=== PATIENT | female | born 1985 | race African-American/Black ===

== ENCOUNTER 2016-05-13 16:10 | Emergency (ER) | payer MEDICAID ==
[2016-05-13 16:42] VITALS: BP 148/113
--- NOTE | 2016-05-13 16:42 | ER Document Report ---
ED Medical Screen (RME) - General Stated Complaint: BACK PAIN Time seen by provider: 16:38 Mode of Arrival: Ambulatory Information source: Patient Notes: 30 yo female c/o intermittent chronic lumbar back pain ( x 9 year) all the way across since last night while watching tv. No radiculopathy. Usually due to LUPUS. Usually gets a shot for the pain. No fever. Decreased appeitite with nausea No UTI symptoms. TRAVEL OUTSIDE OF THE U[place] IN LAST 30 DAYS: No - Related Data Allergies/Adverse Reactions: aspirin [Aspirin] Allergy (Verified 04/17/16 18:44) Renal failure ibuprofen Allergy (Verified 04/17/16 18:44) Past Medical History - Past Medical History Cardiac Medical History: Reports: Hx Hypertension Pulmonary Medical History: Reports: Hx Asthma Neurological Medical History: Reports: Hx Seizures Renal/ Medical History: Reports: Hx Ovarian Cysts Past Surgical History: Reports: Hx Gynecologic Surgery - Colposcopy - Immunizations Immunizations up to date: Yes Hx Diphtheria, Pertussis, Tetanus Vaccination: Yes
[2016-05-13] MEDS ORDERED: ACETAMINOPHEN 325 MG TABLET PO ONE (16:43)
[2016-05-13 17:08] LABS: APPEARANCE,URINE CLEAR; BILIRUBIN,URINE NEGATIVE (NEGATIVE); GLUCOSE, URINE NEGATIVE (NEGATIVE); KETONES,URINE NEGATIVE (NEGATIVE); LEUKOCYTE ESTERASE,URINE NEGATIVE (NEGATIVE); NITRITE,URINE NEGATIVE (NEGATIVE); PROTEIN,URINE >=500 mg/dL (NEGATIVE); URINE SPECIFIC GRAVITY 1.016; UROBILINOGEN,URINE NEGATIVE mg/dL (<2.0)
[2016-05-13] MEDS ORDERED: MORPHINE SULFATE 10 MG/ML INJ IM ONE (18:01)
--- NOTE | 2016-05-13 18:04 | ER Document Report ---
ED General - General Chief Complaint: Low Back Pain Stated Complaint: BACK PAIN Mode of Arrival: Ambulatory Information source: Patient Notes: 30-year-old female history of lupus who is presented multiple times for chronic back pain Patient denies any neurological deficits any numbness or weakness TRAVEL OUTSIDE OF THE [place].S. IN LAST 30 DAYS: No - HPI Onset: Just prior to arrival Onset/Duration: Sudden Quality of pain: Achy Severity: Mild Pain Level: 1 Associated symptoms: Nausea Exacerbated by: Denies Relieved by: Denies Similar symptoms previously: Yes Recently seen / treated by doctor: Yes - Related Data Allergies/Adverse Reactions: aspirin [Aspirin] Allergy (Verified 05/13/16 16:42) Renal failure ibuprofen Allergy (Verified 05/13/16 16:42) Past Medical History - General Information source: Patient - Social History Smoking Status: Unknown if Ever Smoked Cigarette use (# per day): No Chew tobacco use (# tins/day): No Smoking Education Provided: No Frequency of alcohol use: None Drug Abuse: None Family History: Hypertension Patient has suicidal ideation: No Patient has homicidal ideation: No - Past Medical History Cardiac Medical History: Reports: Hx Hypertension Pulmonary Medical History: Reports: Hx Asthma Neurological Medical History: Reports: Hx Seizures Renal/ Medical History: Reports: Hx Ovarian Cysts Past Surgical History: Reports: Hx Gynecologic Surgery - Colposcopy - Immunizations Immunizations up to date: Yes Hx Diphtheria, Pertussis, Tetanus Vaccination: Yes Review of Systems - Review of Systems Notes: REVIEW OF SYSTEMS: CONSTITUTIONAL : Denies fever, chills, or sweats. Denies recent illness. EENT: Denies eye, ear, throat, or mouth pain or symptoms. Denies nasal or sinus congestion or discharge. Denies throat, tongue, or mouth swelling or difficulty swallowing. CARDIOVASCULAR: Denies chest pain. Denies palpitations or racing or irregular heart beat. Denies ankle edema. RESPIRATORY: Denies cough, cold, or chest congestion. Denies shortness of breath, difficulty breathing, or wheezing. GASTROINTESTINAL: Denies abdominal pain or distention. Denies nausea, vomiting , or diarrhea. Denies blood in vomitus, stools, or per rectum. Denies black, tarry stools. Denies constipation. GENITOURINARY: Denies difficulty urinating, painful urination, burning, frequency, blood in urine, or discharge. FEMALE GENITOURINARY: Denies vaginal bleeding, heavy or abnormal periods, irregular periods. Denies vaginal discharge or odor. MUSCULOSKELETAL: Admits to chronic low back pain SKIN: Denies rash, lesions or sores. HEMATOLOGIC : Denies easy bruising or bleeding. LYMPHATIC: Denies swollen, enlarged glands. NEUROLOGICAL: Denies confusion or altered mental status. Denies passing out or loss of consciousness. Denies dizziness or lightheadedness. Denies headache. Denies weakness or paralysis or loss of use of either side. Denies problems with gait or speech. Denies sensory loss, numbness, or tingling. Denies seizures. PSYCHIATRIC: Denies anxiety or stress. Denies depression, suicidal ideation, or homicidal ideation. ALL OTHER SYSTEMS REVIEWED AND NEGATIVE. Dictation was performed using [employer] voice recognition software PHYSICAL EXAMINATION: GENERAL: Well-appearing, well-nourished and in no acute distress. HEAD: Atraumatic, normocephalic. EYES: Pupils equal round and reactive to light, extraocular movements intact, conjunctiva are normal. ENT: Nares patent, oropharynx clear without exudates. Moist mucous membranes. NECK: Normal range of motion, supple without lymphadenopathy LUNGS: Breath sounds clear to auscultation bilaterally and equal. No wheezes rales or rhonchi. HEART: Regular rate and rhythm without murmurs ABDOMEN: Soft, nontender, nondistended abdomen. No guarding, no rebound. No masses appreciated. Female : deferred Musculoskeletal: Normal range of motion, no pitting or edema. No cyanosis. NEUROLOGICAL: Cranial nerves grossly intact. Normal speech, normal gait. Normal sensory, motor exams PSYCH: Normal mood, normal affect. SKIN: Warm, Dry, normal turgor, no rashes or lesions noted. Physical Exam - Vital signs Vitals: Temp Pulse Resp BP Pulse Ox 98.0 F 85 18 148/113 H 98 05/13/16 16:41 05/13/16 16:41 05/13/16 16:41 05/13/16 16:41 05/13/16 16:41 Course - Re-evaluation Re-evalutation: 05/13/16 18:09 Patient is in no significant distress, she is resting comfortably with family member at bedside laughing when I walked in. Patient will be given pain control is otherwise stable After performing a Medical Screening Examination, I estimate there is LOW risk for EXPANDING OR RUPTURED ABDOMINAL AORTIC ANEURYSM, CAUDA EQUINA SYNDROME, EPIDURAL MASS LESION, or HERNIATED DISK CAUSING SEVERE SPINAL STENOSIS, thus I consider the discharge disposition reasonable. The patient and I have discussed the diagnosis and risks, and we agree with discharging home and close follow-up. We also discussed returning to the Emergency Department immediately if new or worsening symptoms occur with the understanding that symptoms and presentations can change. We have discussed the symptoms which are most concerning (e.g., saddle anesthesia, urinary or bowel incontinence or retention , changing or worsening pain) that necessitate immediate return. - Vital Signs Vital signs: Temp Pulse Resp BP Pulse Ox 98.0 F 85 18 148/113 H 98 05/13/16 16:41 05/13/16 16:41 05/13/16 16:41 05/13/16 16:41 05/13/16 16:41 - Laboratory Laboratory results interpreted by me: 05/13/16 16:50 Urine Protein >=500 H Urine Blood MODERATE H Discharge - Discharge Clinical Impression: Chronic bilateral low back pain without sciatica Lupus Qualifiers: Systemic lupus erythematosus type: unspecified Systemic lupus erythematosus organ involvement: unspecified Qualified Code(s): M32.9 - Systemic lupus erythematosus, unspecified Condition: Stable Disposition: HOME, SELF-CARE Instructions: Low Back Pain ([facility]) Prescriptions: Oxycodone HCl [Oxycontin Ir 5 Mg Tablet] 1 - 2 mg PO Q4H PRN #15 tablet PRN Reason: For Pain Referrals: PAULINA MUSA MD [Primary Care Provider] - Follow up tomorrow
== END 2016-05-13 18:33 | disposition home or self-care (01) ==
LOC: ER 16:10
DX: G89.29 Other chronic pain (principal); M54.5 Low back pain; M32.9 Systemic lupus erythematosus, unspecified; R11.0 Nausea; I10 Essential (primary) hypertension; J45.909 Unspecified asthma, uncomplicated; Z88.6 Allergy status to analgesic agent
CPT/HCPCS: 99283; 96372; 87086; 81001; J3490; J2270

== ENCOUNTER 2016-09-20 08:29 | Emergency (ER) | payer MEDICAID ==
[2016-09-20] MEDS ORDERED: KETOROLAC TROMETHAMINE 60 MG/2 ML SDV IM ONE (09:48)
[2016-09-20] MEDS ORDERED: DIPHENHYDRAMINE HCL 50 MG/ML VIAL IM ONE (09:48)
[2016-09-20] MEDS ORDERED: METOCLOPRAMIDE HCL INJ/PF 10 MG/2 ML SDV IM ONE (09:49)
--- NOTE | 2016-09-20 10:15 | ER Document Report ---
ED Headache - General Mode of Arrival: Ambulatory Information source: Patient TRAVEL OUTSIDE OF THE U.S. 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 Patient states that she has taken Tylenol to no relief. Patient additionally complains of teary left eye, but denies any blurry or double vision, numbness or tingling, or any stroke like symptoms. Patient has tried to make an appointment with her primary care provider, Jessika MCKEON, but she isn't available for the next 4 days. Patient has no known family history of brain aneurysms. Patient is taking 35 mg Prednisone for the past 8-9 years, Lisinopril, and percocet as needed. Patient has not taken her medication today. (YOJANA JOHNSON) - Related Data Allergies/Adverse Reactions: aspirin [Aspirin] Allergy (Verified 09/21/16 08:35) Renal failure ibuprofen Allergy (Verified 09/21/16 08:35) Past Medical History - General Information source: Patient - Social History Smoking Status: Never Smoker Frequency of alcohol use: None Drug Abuse: None Family History: Hypertension Patient has suicidal ideation: No Patient has homicidal ideation: No - Medical History Medical History: Other - History of Lupus - Past Medical History Cardiac Medical History: Reports: Hx Hypertension Pulmonary Medical History: Reports: Hx Asthma Neurological Medical History: Reports: Hx Seizures Renal/ Medical History: Reports: Hx Ovarian Cysts. Denies: Hx Peritoneal Dialysis Past Surgical History: Reports: Hx Gynecologic Surgery - Colposcopy - Immunizations Immunizations up to date: Yes Hx Diphtheria, Pertussis, Tetanus Vaccination: Yes Review of Systems - Review of Systems Constitutional: No symptoms reported EENT: See HPI, Eye discharge - tears. denies: Blurred vision, Double vision Cardiovascular: No symptoms reported Respiratory: No symptoms reported Gastrointestinal: No symptoms reported Genitourinary: No symptoms reported Female Genitourinary: No symptoms reported Musculoskeletal: No symptoms reported Skin: No symptoms reported Hematologic/Lymphatic: No symptoms reported Neurological/Psychological: See HPI, Headaches - temporal. denies: Speech impairment, Numbness, Tingling -: Yes All other systems reviewed and negative Physical Exam - General General appearance: Alert In distress: None - HEENT Head: Normocephalic, Atraumatic Eyes: Normal Extraocular movements intact: Yes Pupils: PERRL Neck: Normal - Respiratory Respiratory status: No respiratory distress Breath sounds: Normal - Cardiovascular Rhythm: Regular Heart sounds: Normal auscultation - Abdominal Inspection: Normal - Back Back: Normal - Extremities General upper extremity: Normal inspection, Normal ROM General lower extremity: Normal inspection, Normal ROM - Neurological Neuro grossly intact: Yes Cognition: Normal Orientation: AAOx4 Blaine Coma Scale Eye Opening: Spontaneous Blaine Coma Scale Verbal: Oriented Sameer Coma Scale Motor: Obeys Commands Sameer Coma Scale Total: 15 Speech: Normal Motor strength normal: LUE, RUE, LLE, RLE - Psychological Associated symptoms: Normal affect, Normal mood - Skin Skin Temperature: Warm Skin Moisture: Dry Skin Color: Normal Course - Re-evaluation Re-evalutation: 09/20/16 10:53 Patient presents to the emergency department with a 2 and half day history of headache. He said that it has been persistent no [id number] treatment other than Tylenol does not have a history of chronic headaches. There is no associated blurred vision double vision strokelike symptoms numbness tingling weakness loss of bowel or bladder function vertigo or dizziness. She does have a history of lupus and is on CellCept for that. She is also on chronic steroids for years that she states they were unable to remove her from. She normally takes Percocet for chronic pain but she says that she has been adamantly having given her any lately. No family history of brain aneurysms and she drove herself here. On examination her blood pressure is elevated she states she did not take her medicine today. She is awake alert with a GCS of 15 no blurred vision no double vision HEENT examination is normal no neck pain stiffness or nuchal rigidity negative neurological deficits with a GCS of 15. Negative CT scan of the head. Given Toradol Reglan Benadryl with significant improvement. At this point patient is reassessed her pain is improved she is sleepy ray go home and take a nap already called her primary care physician is going to see her on Saturday. She is to return to the emergency department sooner for increasing worsening or new symptoms discussed the elevated blood pressure gave her instructions on that and close follow-up in regards to that as well. (FAIZA CISNEROS) - Vital Signs Vital signs: Temp Pulse Resp BP Pulse Ox 98.1 F 70 16 137/86 H 100 09/20/16 11:01 09/20/16 11:01 09/20/16 11:01 09/20/16 11:01 09/20/16 11:01 Discharge - Discharge Clinical Impression: Cephalgia Qualifiers: Headache type: unspecified Headache chronicity pattern: unspecified pattern Intractability: not intractable Qualified Code(s): R51 - Headache Condition: Stable Disposition: HOME, SELF-CARE Instructions: Headache ([facility]) Additional Instructions: Headache The physician does not feel that the headache you are experiencing has a serious underlying cause. Most headaches are due to emotional stress, with resultant muscle tension (tension headache). Occasionally, headaches are secondary to changes in the blood vessels of the scalp (vascular headache and migraine headache). Sometimes, a headache is the first symptom of another developing illness, such as a viral infection. You have no evidence of stroke, bleeding, meningitis, or other serious cause of your headache. The treatment of headaches varies with the severity and cause of the pain. Not all headaches need pain shots. In fact, there is evidence that using narcotics for headaches may make them worse in the long run. The physician will determine the therapy that's in your best interest. If you develop a fever, if the headache is different from any you've previously experienced, or if the headache progressively worsens, then call your physician at once or go to the emergency room. Referrals: JESSIKA DONOVAN PA-C [Primary Care Provider] - (in 2-3 days return for increased worsening or new symptoms) Scribe Attestation: 09/20/16 10:53 I personally performed the services described in the documentation reviewed the documentation recorded by my scribe in my presence and it accurately and completely records my words and actions (FAIZA CISNEROS) Scribe Documentation - Scribe Written by Kerry:: Kerry Coulter, 09/20/2016 1017 acting as scribe for :: Harsh
[2016-09-20 11:22] VITALS: BP 137/86
== END 2016-09-20 11:03 | disposition home or self-care (01) ==
LOC: ER 08:29
DX: R51 Headache (principal); I10 Essential (primary) hypertension; H57.8 Other specified disorders of eye and adnexa; J45.909 Unspecified asthma, uncomplicated; Z86.73 Personal history of transient ischemic attack (TIA), and cerebral infarction without residual deficits; Z79.52 Long term (current) use of systemic steroids; Z79.899 Other long term (current) drug therapy; Z88.6 Allergy status to analgesic agent
CPT/HCPCS: 99284; 96372; 70450; J1200; J1885; J2765

== ENCOUNTER 2016-09-21 08:32 | Emergency (ER) | payer MEDICAID ==
[2016-09-21] MEDS ORDERED: PENICILLIN V POTASSIUM 500 MG TABLET PO ONE (10:04)
[2016-09-21] MEDS ORDERED: BUPIVACAINE HCL 0.5 % INJ/PF 30 ML SDV INJ ONE (10:04)
--- NOTE | 2016-09-21 10:10 | ER Document Report ---
HPI - HPI Patient complains to provider of: toothache Pain Level: 5 Context: A 30-year-old female thank you who presents emergency department complaining of left lower jaw pain since last evening. Patient states that she is evaluated in the emergency department last evening for headache Patient states that she then went home and started having pain in her left lower jaw. Comes in today for evaluation for tooth pain. She denies any fevers, chills, difficulty swallowing, difficulty breathing, shortness breath, trismus, muffled speech, discharge or odor. Past medical history significant for lupus - CARDIOVASCULAR Cardiovascular: DENIES: Chest pain - REPRODUCTIVE Reproductive: DENIES: : - DERM Skin Color: Normal Past Medical History - Social History Smoking Status: Never Smoker Chew tobacco use (# tins/day): No Frequency of alcohol use: None Drug Abuse: None Family History: Hypertension Patient has suicidal ideation: No Patient has homicidal ideation: No - Past Medical History Cardiac Medical History: Reports: Hx Hypertension Pulmonary Medical History: Reports: Hx Asthma Neurological Medical History: Reports: Hx Seizures Renal/ Medical History: Reports: Hx Ovarian Cysts. Denies: Hx Peritoneal Dialysis Past Surgical History: Reports: Hx Gynecologic Surgery - Colposcopy - Immunizations Immunizations up to date: Yes Hx Diphtheria, Pertussis, Tetanus Vaccination: Yes Vertical Provider Document - CONSTITUTIONAL Agree With Documented VS: Yes Exam Limitations: No Limitations General Appearance: WD/WN, No Apparent Distress - INFECTION CONTROL TRAVEL OUTSIDE OF THE [place].S[place] IN LAST 30 DAYS: No - HEENT HEENT: Atraumatic, Normocephalic, PERRLA. negative: Conjuctival Injection, Pharyngeal Exudate, Pharyngeal Tenderness, Pharyngeal Erythema, Tympanic Membrane Red, Tympanic Membrane Bulging Mouth Diagram: 1 - Tenderness to palpation without any evidence of abscess. Evidence of gingival inflammation as well is old fracture Notes: Uvula midline. Airway patent. No evidence of tonsillar enlargement, peritonsillar abscess, retropharyngeal abscess. - NECK Neck: Normal Inspection, Other - No evidence of Bill's angina. negative: Lymphadenopathy-Left, Lymphadenopathy-Right - RESPIRATORY Respiratory: Breath Sounds Normal, No Respiratory Distress, Chest Non-Tender O2 Sat by Pulse Oximetry: 99 - CARDIOVASCULAR Cardiovascular: Regular Rate, Regular Rhythm, No Murmur Course - Re-evaluation Re-evalutation: 09/21/16 20:44 Patient is a 30-year-old female who is hemodynamic stable, no acute distress and afebrile. Patient received a 5 cc Sensorcaine dental block which alleviated her symptoms. Patient initiated on antibiotics and instructed to follow-up with the dentist at the completion of this course. - Vital Signs Vital signs: Temp Pulse Resp BP Pulse Ox 99.1 F 72 18 149/93 H 99 09/21/16 08:36 09/21/16 08:36 09/21/16 08:36 09/21/16 08:36 09/21/16 08:36 Discharge - Discharge Clinical Impression: Tooth ache Condition: Good Disposition: HOME, SELF-CARE Instructions: [facility], Oral Narcotic Medication ([facility]), Penicillin V K ([facility]), Toothache ([facility]) Additional Instructions: [facility] [address] [place], [place] Saturday mornings, by appointment [facility] [address] [place] [address] [facility] [place] [address] [facility] [address] [facility] (4th) [facility] [address] [email or web address] [address] [place] [address] Saturday- 8:00am to 5:00 pm Will see patients from other [facility]. Charges based on income and family size and accepts Medicare, Medicaid, and Insurances Will pull molars [facility] [address] Hours of Operation 8:00 am - 4:30 pm weekdays The following dental offices accept Medicaid: [facility] [address]. [address] Dr[address] Weeks [address]orman Dr. Dela Cruz Tu Acharya, Kay, and [place] oral surgery Dr. Mary ([place]) Dr. Courtney ([place]) [facility] Drs. Rouse ([place]) Dr. Dai ([place]) [facility] Dr. Chopra ([place]) Drs. Champagne and ([place]) Medicaid Care Line Prescriptions: Oxycodone HCl/Acetaminophen [Percocet 5-325 mg Tablet] 1 - 2 tab PO Q4H PRN #15 tablet PRN Reason: Penicillin V Potassium [Penicillin Vk 500 mg Tablet] 500 mg PO BID #20 tablet Forms: Elevated Blood Pressure Referrals: JESSIKA DONOVAN PA-C [Primary Care Provider] - Follow up as needed
[2016-09-21 10:30] VITALS: BP 159/103
== END 2016-09-21 10:30 | disposition home or self-care (01) ==
LOC: ER 08:32
DX: K08.9 Disorder of teeth and supporting structures, unspecified (principal); R68.84 Jaw pain; R51 Headache; I10 Essential (primary) hypertension; J45.909 Unspecified asthma, uncomplicated
CPT/HCPCS: 99282; J3490

== ENCOUNTER 2016-10-07 15:51 | Emergency (ER) | payer MEDICAID ==
[2016-10-07] MEDS ORDERED: KETOROLAC TROMETHAMINE 60 MG/2 ML SDV IM ONE (17:14)
[2016-10-07 18:37] LABS: HEMATOCRIT 25.1 % (36.0-47.0); HGB HCT DIFFERENCE -3.5; MEAN CORPUSCULAR HEMOGLOBIN 17.8 pg (27.0-33.4); MEAN CORPUSCULAR HGB CONC 28.8 g/dL (32.0-36.0); RED BLOOD COUNT 4.05 10^6/uL (3.72-5.28); RED CELL DISTRIBUTION WIDTH 18.9 % (11.5-14.0); WHITE BLOOD COUNT 9.9 10^3/uL (4.0-10.5)
[2016-10-07 18:43] LABS: APPEARANCE,URINE CLEAR; BILIRUBIN,URINE NEGATIVE (NEGATIVE); GLUCOSE, URINE NEGATIVE (NEGATIVE); KETONES,URINE NEGATIVE (NEGATIVE); LEUKOCYTE ESTERASE,URINE NEGATIVE (NEGATIVE); NITRITE,URINE NEGATIVE (NEGATIVE); PROTEIN,URINE >=500 mg/dL (NEGATIVE); URINE SPECIFIC GRAVITY 1.013; UROBILINOGEN,URINE NEGATIVE mg/dL (<2.0)
--- NOTE | 2016-10-07 18:47 | ER Document Report ---
ED Medical Screen (RME) - General Chief Complaint: Back Pain Stated Complaint: BACK PAIN Time Seen by Provider: 10/07/16 17:14 Mode of Arrival: Ambulatory Information source: Patient Notes: Patient is a 30-year-old -[place] female with a history of iron deficiency anemia who presents to the ER today for iron infusion as she was told recently at another hospital but her iron levels were low and she needed an infusion, but she did not get one there. She also presents with low back pain that she thinks is the start of a lupus flare for her. She presents "the same shot I got last time which helped a lot." TRAVEL OUTSIDE OF THE U.S. IN LAST 30 DAYS: No - Related Data Allergies/Adverse Reactions: aspirin [Aspirin] Allergy (Verified 10/07/16 16:22) Renal failure ibuprofen Allergy (Verified 10/07/16 16:22) Past Medical History - General Information source: Patient - Social History Chew tobacco use (# tins/day): No Frequency of alcohol use: None Drug Abuse: None - Past Medical History Cardiac Medical History: Reports: Hx Hypertension Pulmonary Medical History: Reports: Hx Asthma Neurological Medical History: Reports: Hx Seizures Renal/ Medical History: Reports: Hx Ovarian Cysts. Denies: Hx Peritoneal Dialysis Past Surgical History: Reports: Hx Gynecologic Surgery - Colposcopy - Immunizations Immunizations up to date: Yes Hx Diphtheria, Pertussis, Tetanus Vaccination: Yes Review of Systems - Review of Systems Musculoskeletal: See HPI Hematologic/Lymphatic: See HPI Physical Exam - Vital signs Vitals: Temp Pulse Resp BP Pulse Ox 98.2 F 87 20 143/106 H 100 10/07/16 16:23 10/07/16 16:23 10/07/16 16:23 10/07/16 16:23 10/07/16 16:23 - Notes Notes: PHYSICAL EXAMINATION: GENERAL: Well-appearing and in no acute distress. LUNGS: CTAB and equal. No wheezes rales or rhonchi. HEART: Regular rate and rhythm without murmurs Course - Vital Signs Vital signs: Temp Pulse Resp BP Pulse Ox 98.2 F 87 20 143/106 H 100 10/07/16 16:23 10/07/16 16:23 10/07/16 16:23 10/07/16 16:23 10/07/16 16:23 - Laboratory Result Diagrams: 10/07/16 18:20 Laboratory results interpreted by me: 10/07/16 18:20 Urine Protein >=500 H Urine Blood SMALL H
[2016-10-07 18:58] LABS: HEMOGLOBIN 7.2 g/dL (12.0-15.5)
[2016-10-07 18:59] LABS: MEAN CORPUSCULAR VOLUME 62 fl (80-97)
[2016-10-07] MEDS ORDERED: TRAMADOL HCL 50 MG TABLET PO ONE (19:25)
--- NOTE | 2016-10-07 19:30 | ER Document Report ---
HPI - HPI Patient complains to provider of: pelvic cramps Pain Level: 4 Context: Is a 30-year-old female presents emergency department complaining of pelvic cramps from her. That started today that radiating into her back. She often gets a Toradol injection for this which helped relieve her cramps. Patient admits that she is anemic but would like to have her blood work checked she is concerned she may need a transfusion. Patient states she follows with kajal MCKEON, who prescribed her iron infusion for her anemia. Denies any lightheadedness, dizziness, chest pain, weakness. - CARDIOVASCULAR Cardiovascular: DENIES: Chest pain - REPRODUCTIVE Reproductive: DENIES: : - DERM Skin Color: Normal Past Medical History - General Information source: Patient - Social History Smoking Status: Never Smoker Chew tobacco use (# tins/day): No Frequency of alcohol use: None Drug Abuse: None Family History: Hypertension Patient has suicidal ideation: No Patient has homicidal ideation: No - Past Medical History Cardiac Medical History: Reports: Hx Hypertension Pulmonary Medical History: Reports: Hx Asthma Neurological Medical History: Reports: Hx Seizures Renal/ Medical History: Reports: Hx Ovarian Cysts. Denies: Hx Peritoneal Dialysis Past Surgical History: Reports: Hx Gynecologic Surgery - Colposcopy - Immunizations Immunizations up to date: Yes Hx Diphtheria, Pertussis, Tetanus Vaccination: Yes Vertical Provider Document - CONSTITUTIONAL Agree With Documented VS: Yes Exam Limitations: No Limitations General Appearance: WD/WN, No Apparent Distress Notes: PHYSICAL EXAM GENERAL: Alert, interacts well. HEAD: Normocephalic, atraumatic. EYES: Pupils equal, round, and reactive to light. Extraocular movements intact. ENT: Oral mucosa moist, tongue midline. NECK: Full range of motion. Supple. Trachea midline. LUNGS: Clear to auscultation bilaterally, no wheezes, rales, or rhonchi. No respiratory distress. HEART: Regular rate and rhythm. No murmurs, gallops, or rubs. ABDOMEN: Soft, nondistended, nontender. No guarding, rebound, or rigidity.. Bowel sounds present in all 4 quadrants. EXTREMITIES: Moves all 4 extremities spontaneously. No edema, radial and dorsalis pedis pulses 2/4 bilaterally. No cyanosis. BACK: mild paraspinal muscle tenderness bilaterally without spinous process tenderness, step offs, deformities RECTAL: patient refused : patient refused NEUROLOGICAL: Alert and oriented x4. Normal speech. PSYCH: Normal affect, normal mood. SKIN: Warm, dry, normal turgor. No rashes or lesions noted. - INFECTION CONTROL TRAVEL OUTSIDE OF THE [place] IN LAST 30 DAYS: No - RESPIRATORY O2 Sat by Pulse Oximetry: 100 Course - Re-evaluation Re-evalutation: 10/07/16 20:04 Patient is a 30-year-old female who is hemodynamic stable, no acute. CBC 7.2 with hematocrit of 25 which is down from her previous CBC drawn in March with a hemoglobin of 10. Patient has been this low in the past on previous studies. Discussion with supervising physician Dr. Anabella Fagan, he recommends touching base with her primary grade teacher Dr. Gabriel to see if he would recommend blood transfusion or not. Discussed with patient, she refused any further workup for her anemia declined possibility that she would need blood transfusion. Patient requesting to go home. Will follow up with PCP tomorrow. Patient clinically and recent vital signs stable. Discussed with her strict return precautions. Patient expresses understanding and agrees with plan. - Vital Signs Vital signs: Temp Pulse Resp BP Pulse Ox 98.2 F 87 20 143/106 H 100 10/07/16 16:23 10/07/16 16:23 10/07/16 16:23 10/07/16 16:23 10/07/16 16:23 - Laboratory Result Diagrams: 10/07/16 18:20 Laboratory results interpreted by me: 10/07/16 10/07/16 18:20 18:20 Hgb 7.2 L Hct 25.1 L MCV 62 L MCH 17.8 L MCHC 28.8 L RDW 18.9 H Plt Count 621 H Urine Protein >=500 H Urine Blood SMALL H Discharge - Discharge Clinical Impression: Anemia, Menstrual cramps Condition: Good Disposition: HOME, SELF-CARE Instructions: Anemia, Iron Deficiency ([facility]) Additional Instructions: Please follow up with your Parts Cataloguer and primary care provider tomorrow Prescriptions: Tramadol HCl 50 mg PO Q8HP PRN #10 tablet PRN Reason: Forms: Elevated Blood Pressure Referrals: KAJAL DONOVAN PA-C [Primary Care Provider] - Follow up tomorrow RAVEN CHUN MD [ACTIVE STAFF] - Follow up in 3-5 days
[2016-10-07 19:59] VITALS: BP 146/100
[2016-10-08 18:26] LABS: PATH REVIEW PATHOLOGIST REVIEWED
== END 2016-10-07 19:55 | disposition home or self-care (01) ==
LOC: ER 15:51
DX: N94.6 Dysmenorrhea, unspecified (principal); D64.9 Anemia, unspecified; I10 Essential (primary) hypertension; J45.909 Unspecified asthma, uncomplicated
CPT/HCPCS: 99284; 96372; 36415; 85027; 81001; J1885

== ENCOUNTER 2016-11-05 13:45 | Emergency (ER) | payer MEDICAID ==
[2016-11-05] MEDS ORDERED: ONDANSETRON 4 MG TAB.RAPDIS PO ONE (14:43)
--- NOTE | 2016-11-05 15:04 | ER Document Report ---
ED Medical Screen (RME) - General Chief Complaint: Pain All Over Stated Complaint: VOMITING Time Seen by Provider: 11/05/16 14:42 Notes: Patient is a 31-year-old female, past medical history lupus, presents with bilateral back pain and lower abdominal pain and nausea. She usually has this around the time of her periods. Her period started yesterday. Unable to keep any of her medications down. PE: Actively vomiting. RRR. Soft abdomen. I have greeted and performed a rapid initial assessment of this patient. A comprehensive ED assessment and evaluation of the patient, analysis of test results and completion of the medical decision making process will be conducted by additional ED providers. TRAVEL OUTSIDE OF THE [place] IN LAST 30 DAYS: No - Related Data Allergies/Adverse Reactions: aspirin [Aspirin] Allergy (Verified 11/05/16 13:58) Renal failure ibuprofen Allergy (Verified 11/05/16 13:58) Past Medical History - Past Medical History Cardiac Medical History: Reports: Hx Hypertension Pulmonary Medical History: Reports: Hx Asthma Neurological Medical History: Reports: Hx Seizures Renal/ Medical History: Reports: Hx Ovarian Cysts. Denies: Hx Peritoneal Dialysis Past Surgical History: Reports: Hx Gynecologic Surgery - Colposcopy - Immunizations Immunizations up to date: Yes Hx Diphtheria, Pertussis, Tetanus Vaccination: Yes Physical Exam - Vital signs Vitals: Temp Pulse Resp BP Pulse Ox 98.1 F 67 18 175/114 H 99 11/05/16 13:58 11/05/16 13:58 11/05/16 13:58 11/05/16 13:58 11/05/16 13:58 Course - Vital Signs Vital signs: Temp Pulse Resp BP Pulse Ox 98.1 F 67 18 175/114 H 99 11/05/16 13:58 11/05/16 13:58 11/05/16 13:58 11/05/16 13:58 11/05/16 13:58
[2016-11-05] MEDS ORDERED: KETOROLAC TROMETHAMINE 60 MG/2 ML SDV IM ONE (15:15)
[2016-11-05] MEDS ORDERED: HYDROCODONE/ACETAMINOPHEN 5-325 MG TABLET PO ONE (15:15)
[2016-11-05 15:24] LABS: HEMATOCRIT 24.3 % (36.0-47.0); HGB HCT DIFFERENCE -3.6; MEAN CORPUSCULAR HGB CONC 28.3 g/dL (32.0-36.0); RED BLOOD COUNT 4.05 10^6/uL (3.72-5.28); RED CELL DISTRIBUTION WIDTH 21.2 % (11.5-14.0); WHITE BLOOD COUNT 13.4 10^3/uL (4.0-10.5)
[2016-11-05 15:45] LABS: BASOPHILS % (MANUAL) 0 % (0-2); EOSINOPHILS % (MANUAL) 0 % (0-6); LYMPHOCYTES % (MANUAL) 10 % (13-45); TOTAL CELLS COUNTED 100
[2016-11-05 15:47] LABS: ANISOCYTOSIS 2+; BURR CELLS SLIGHT; HELMET CELLS SLIGHT; HYPOCHROMASIA 3+; MICROCYTOSIS 3+; OVALOCYTES 1+; POIKILOCYTOSIS 3+; TARGET CELLS SLIGHT; TEAR DROP CELLS SLIGHT
[2016-11-05 15:48] LABS: ALANINE AMINOTRANSFERASE 21 U/L (9-52); ALBUMIN 3.6 g/dL (3.5-5.0); ALKALINE PHOSPHATASE 87 U/L (38-126); ANION GAP 10 (5-19); ASPARTATE AMINO TRANSFERASE 22 U/L (14-36); BILIRUBIN,DIRECT 0.3 mg/dL (0.0-0.4); BILIRUBIN,TOTAL 0.4 mg/dL (0.2-1.3); BLOOD UREA NITROGEN 12 mg/dL (7-20); CALCIUM 9.3 mg/dL (8.4-10.2); CARBON DIOXIDE 20 mmol/L (22-30); CHLORIDE 110 mmol/L (98-107); CREATININE RESULT 1.39 mg/dL (0.52-1.25); GLUCOSE 110 mg/dL (75-110); LIPASE 76.4 U/L (23-300); POTASSIUM 4.8 mmol/L (3.6-5.0); SODIUM 140.3 mmol/L (137-145); TOTAL PROTEIN 7.7 g/dL (6.3-8.2)
--- NOTE | 2016-11-05 16:00 | ER Document Report ---
ED General Pain - General Chief Complaint: Pain All Over Stated Complaint: VOMITING Time Seen by Provider: 11/05/16 14:42 Mode of Arrival: Ambulatory Information source: Patient TRAVEL OUTSIDE OF THE [place] IN LAST 30 DAYS: No - HPI Patient complains to provider of: Abdominal pain, low back pain Onset: Yesterday Onset/Duration: Gradual Quality of pain: Achy, Cramping Severity: Moderate Pain Level: 3 Context: Chronic problem Similar symptoms previously: Yes Notes: Patient is a 31-year-old female with a history of lupus who presents to the emergency room complaining of low back pain with pelvic cramping and heavy vaginal bleeding, states she started her menstrual cycle yesterday, she is also having nausea and vomiting today related to the pain, she states she gets symptoms like this every month when she gets her period, today is worse than usual, she reports that she attempted to follow-up with her primary care provider today, however due to 06 November hol their office is closed so she came to the emergency room - Related Data Allergies/Adverse Reactions: aspirin [Aspirin] Allergy (Verified 11/05/16 13:58) Renal failure ibuprofen Allergy (Verified 11/05/16 13:58) Past Medical History - General Information source: Patient - Social History Smoking Status: Never Smoker Family History: Hypertension Patient has suicidal ideation: No Patient has homicidal ideation: No - Past Medical History Cardiac Medical History: Reports: Hx Hypertension Pulmonary Medical History: Reports: Hx Asthma Neurological Medical History: Reports: Hx Seizures Renal/ Medical History: Reports: Hx Ovarian Cysts. Denies: Hx Peritoneal Dialysis Past Surgical History: Reports: Hx Gynecologic Surgery - Colposcopy - Immunizations Immunizations up to date: Yes Hx Diphtheria, Pertussis, Tetanus Vaccination: Yes Review of Systems - Review of Systems Constitutional: No symptoms reported EENT: No symptoms reported Cardiovascular: No symptoms reported Respiratory: No symptoms reported Gastrointestinal: See HPI Genitourinary: No symptoms reported Female Genitourinary: See HPI Musculoskeletal: See HPI Skin: No symptoms reported Hematologic/Lymphatic: No symptoms reported Neurological/Psychological: No symptoms reported -: Yes All other systems reviewed and negative Physical Exam - Vital signs Vitals: Temp Pulse Resp BP Pulse Ox 98.1 F 67 18 175/114 H 99 11/05/16 13:58 11/05/16 13:58 11/05/16 13:58 11/05/16 13:58 11/05/16 13:58 Interpretation: Hypertensive - General General appearance: Appears well, Alert - HEENT Head: Normocephalic, Atraumatic Eyes: Normal Pupils: PERRL - Respiratory Respiratory status: No respiratory distress Chest status: Nontender Breath sounds: Normal Chest palpation: Normal - Cardiovascular Rhythm: Regular Heart sounds: Normal auscultation Murmur: No - Abdominal Inspection: Normal Distension: No distension Bowel sounds: Normal Tenderness: Tender - suprapubic Organomegaly: No organomegaly - Back Back: Normal, Nontender - Extremities General upper extremity: Normal inspection, Nontender, Normal color, Normal ROM , Normal temperature General lower extremity: Normal inspection, Nontender, Normal color, Normal ROM , Normal temperature, Normal weight bearing. No: Mildred's sign - Neurological Neuro grossly intact: Yes Cognition: Normal Orientation: AAOx4 [place] Coma Scale Eye Opening: Spontaneous Sameer Coma Scale Verbal: Oriented [place] Coma Scale Motor: Obeys Commands [place] Coma Scale Total: 15 Speech: Normal Motor strength normal: LUE, RUE, LLE, RLE Sensory: Normal - Psychological Associated symptoms: Normal affect, Normal mood - Skin Skin Temperature: Warm Skin Moisture: Dry Skin Color: Normal Course - Re-evaluation Re-evalutation: 11/05/16 18:43 Resting comfortably, reports feeling much better after IV fluids and medication , laboratory findings were discussed with her at bedside including her hemoglobin is 6.9, she does have heavy vaginal bleeding on a regular basis, her most recent hemoglobins were in the 7.0-7.4 range, she had blood transfusions in the past but has not followed up to get one recently, she does also report that she is been advised to get a hysterectomy as well but the 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 will not do it until her hemoglobin is improved, patient's vital signs are stable, her anemia is more chronic in nature and does not require an emergent transfusion tonight, therefore she will be discharged with instructions for follow-up and advised to return if any additional concerns, patient acknowledges understanding and agreement with this plan - Vital Signs Vital signs: Temp Pulse Resp BP Pulse Ox 98.1 F 67 14 175/114 H 100 11/05/16 13:58 11/05/16 13:58 11/05/16 18:14 11/05/16 13:58 11/05/16 18:14 - Laboratory Result Diagrams: 11/05/16 15:05 11/05/16 15:05 Laboratory results interpreted by me: 11/05/16 11/05/16 11/05/16 15:05 15:05 15:05 WBC 13.4 H Hgb 6.9 L Hct 24.3 L MCV 60 L MCH 17.0 L MCHC 28.3 L RDW 21.2 H Plt Count 831 H Seg Neuts % (Manual) 87 H Lymphocytes % (Manual) 10 L Abs Neuts (Manual) 11.7 H Chloride 110 H Carbon Dioxide 20 L Creatinine 1.39 H Est GFR ( Amer) 54 L Est GFR (Non-Af Amer) 45 L Urine Protein >=500 H Urine Blood MODERATE H Discharge - Discharge Clinical Impression: Myalgia Anemia Qualifiers: Anemia type: unspecified type Qualified Code(s): D64.9 - Anemia, unspecified Condition: Stable Disposition: HOME, SELF-CARE Instructions: Anemia ([facility]), Dysfunctional Uterine Bleeding ([facility]), Myalagia ( Muscle Pain) ([facility]) Additional Instructions: Follow up with your primary care provider and a rock contractor in one to 2 days. Return to the emergency room immediately if symptoms worsen or any additional concerns. Prescriptions: Oxycodone HCl/Acetaminophen [Percocet 5-325 mg Tablet] 1 - 2 tab PO ASDIR PRN # 20 tablet PRN Reason: Referrals: JESSIKA DONOVAN PA-C [Primary Care Provider] - Follow up as needed RAVEN CHUN MD [ACTIVE STAFF] - Follow up as needed
[2016-11-05 16:02] LABS: HEMOGLOBIN 6.9 g/dL (12.0-15.5); MEAN CORPUSCULAR VOLUME 60 fl (80-97)
[2016-11-05] MEDS ORDERED: NORMAL SALINE 1000 ML 1,000 ML IV PRN (16:10)
[2016-11-05] MEDS ORDERED: KETOROLAC TROMETHAMINE INJ/PF 30 MG/1 ML SDV IV ONE (16:10)
[2016-11-05 16:47] LABS: APPEARANCE,URINE SLIGHTLY-CLOUDY; BILIRUBIN,URINE NEGATIVE (NEGATIVE); GLUCOSE, URINE NEGATIVE (NEGATIVE); KETONES,URINE NEGATIVE (NEGATIVE); LEUKOCYTE ESTERASE,URINE NEGATIVE (NEGATIVE); NITRITE,URINE NEGATIVE (NEGATIVE); PROTEIN,URINE >=500 mg/dL (NEGATIVE); URINE SPECIFIC GRAVITY 1.028; UROBILINOGEN,URINE NEGATIVE mg/dL (<2.0)
[2016-11-05] MEDS ORDERED: MORPHINE SULFATE 10 MG/ML INJ IV ONE (17:56)
[2016-11-05 19:25] VITALS: BP 144/82
[2016-11-07 14:01] LABS: PATH REVIEW PATHOLOGIST REVIEWED
== END 2016-11-05 19:28 | disposition home or self-care (01) ==
LOC: ER 13:45
DX: D64.9 Anemia, unspecified (principal); M79.1 Myalgia; R10.2 Pelvic and perineal pain; M54.5 Low back pain; R11.2 Nausea with vomiting, unspecified; I10 Essential (primary) hypertension; Z88.6 Allergy status to analgesic agent
CPT/HCPCS: 99283; 96361; 96374; 96375; 36415; 83690; 85025; 81025; 80053; 81001; S0119; J1885; J2270; J7030

== ENCOUNTER 2017-01-13 08:33 | Emergency (ER) | payer MEDICAID ==
[2017-01-13] MEDS ORDERED: BUPIVACAINE HCL 0.75% INJ/PF (7.5 MG/1 ML) 10 ML SDV INJ ONE (09:17)
--- NOTE | 2017-01-13 09:24 | ER Document Report ---
HPI - HPI Pain Level: 2 Notes: Patient is a 31-year-old female who presents ED complaining of right lower dental pain to #313-4 days. Patient states that she was evaluated by Monica Rothman yesterday and was given pain medication and antibiotic as well as lidocaine jelly. Patient states that her pain has not been well controlled and is requesting a dental block. She has not noticed any obvious abscess or discharge the area. Pain is described as a throb/ache that does not radiate. patient does not have a dentist appointment scheduled yet. Patient states she is allergic to aspirin and ibuprofen. She denies any other significant past medical history. She still eating and drinking without any difficulties, but does have a decreased appetite. She denies any hoarseness or drooling. Denies any headache, fever, neck pain, URI, sore throat, chest pain, palpitations, syncope, cough, shortness of breath, wheeze, dyspnea, abdominal pain, nausea/ vomiting/diarrhea, dysuria, hematuria, numbness/tingling, muscle paralysis/ weakness, or rash. - ROS Notes: REVIEW OF SYSTEMS: CONSTITUTIONAL : Denies fever, chills, or sweats. Denies recent illness. EENT: see hpi. no eye complaints CARDIOVASCULAR: Denies chest pain. Denies palpitations or racing or irregular heart beat. Denies ankle edema. RESPIRATORY: Denies cough, cold, or chest congestion. Denies shortness of breath, difficulty breathing, or wheezing. GASTROINTESTINAL: Denies abdominal pain or distention. Denies nausea, vomiting , or diarrhea. Denies blood in vomitus, stools, or per rectum. Denies black, tarry stools. Denies constipation. GENITOURINARY: Denies difficulty urinating, painful urination, burning, frequency, blood in urine, or discharge. MUSCULOSKELETAL: Denies back or neck pain or stiffness. Denies joint pain or swelling. SKIN: Denies rash, lesions or sores. NEUROLOGICAL: Denies confusion or altered mental status. Denies passing out or loss of consciousness. Denies dizziness or lightheadedness. Denies headache. Denies weakness or paralysis or loss of use of either side. Denies problems with gait or speech. Denies sensory loss, numbness, or tingling. ALL OTHER SYSTEMS REVIEWED AND NEGATIVE. Dictation was performed using [employer] voice recognition software - REPRODUCTIVE Reproductive: DENIES: : - DERM Skin Color: Normal Past Medical History - Social History Smoking Status: Never Smoker Chew tobacco use (# tins/day): No Frequency of alcohol use: None Drug Abuse: None Family History: Hypertension - Past Medical History Cardiac Medical History: Reports: Hx Hypertension Pulmonary Medical History: Reports: Hx Asthma Neurological Medical History: Reports: Hx Seizures Renal/ Medical History: Reports: Hx Ovarian Cysts. Denies: Hx Peritoneal Dialysis Past Surgical History: Reports: Hx Gynecologic Surgery - Colposcopy - Immunizations Immunizations up to date: Yes Hx Diphtheria, Pertussis, Tetanus Vaccination: Yes Vertical Provider Document - CONSTITUTIONAL Agree With Documented VS: Yes Notes: PHYSICAL EXAMINATION: GENERAL: Well-appearing, well-nourished and in no acute distress. HEAD: Atraumatic, normocephalic. EYES: Pupils equal round and reactive to light, extraocular movements intact, sclera anicteric, conjunctiva are normal. ENT: EAC clear b/l. TM's intact b/l without erythema, fluid, or perforation. Nares patent and without discharge. oropharynx clear without exudates. No tonsilar hypertrophy or erythema. Moist mucous membranes. No sinus tenderness. Uvula midline. No palatine shift. No tongue protrusion. No respiratory compromise. Mouth: Poor dentition. + mild decay and mild gingivitis. No obvious abscess or discharge noted. No facial swelling. + tenderness to tooth #31. NECK: Normal range of motion, supple without lymphadenopathy. No rigidity/ meningismus. LUNGS: Breath sounds clear to auscultation bilaterally and equal. No wheezes rales or rhonchi. HEART: Regular rate and rhythm without murmurs, rubs, gallops. NEUROLOGICAL: Cranial nerves grossly intact. Normal speech, normal gait. Normal sensory, motor exams PSYCH: Normal mood, normal affect. SKIN: Warm, Dry, normal turgor, no rashes or lesions noted. - INFECTION CONTROL TRAVEL OUTSIDE OF THE [place] IN LAST 30 DAYS: No - RESPIRATORY O2 Sat by Pulse Oximetry: 100 Course - Re-evaluation Re-evalutation: 01/13/17 09:40 Patient is an afebrile, well-hydrated, 31yo female who presents to the ED with toothache, suspect nerve etiology vs infection. vitals stable. PE unremarkable otherwise. Pt was eval'd yesterday by monica rothman and given pain medication, viscous lidocaine, and cleocin. Dental block was performed successfully without any complications. Pt noted resolution of her pain within 30 seconds. Low suspicion for any meningitis, sepsis, peritonsillar/pharyngeal abscess, respiratory compromise, Bill's, temporal arteritis, or other emergent systemic condition at this time. Patient is aware this condition can change from initial presentation and she needs to monitor symptoms closely. Conservative measures otherwise for symptoms. Call to schedule an appointment with a dentist for further evaluation and management. Recheck with your PCM this week as well. Return to the ED with any worsening/concerning symptoms otherwise as reviewed in discharge. Patient is in agreement. - Vital Signs Vital signs: Temp Pulse Resp BP Pulse Ox 99.9 F 102 H 18 143/105 H 100 01/13/17 08:39 01/13/17 08:39 01/13/17 08:39 01/13/17 08:39 01/13/17 08:39 Procedures - Additional Procedures Dental block Time performed: 09:30 Additional Procedures: Other - Dental block Risks/benefits/procedure reviewed Verbal consent obtained 2.5cc Sensorcaine utilized with a 1.5" 25g needle on a 5cc syringe no blood loss no complications pt tolerated procedure well Pain resolved within 30 secs indicating appropriate placement Discharge - Discharge Clinical Impression: Toothache Condition: Stable Disposition: HOME, SELF-CARE Instructions: [facility], Dentist, Toothache ([facility], [facility]) Additional Instructions: Hydro and floss twice daily Maintain fluid intake Take antibiotics as directed Mouthwash, salt water gargles, peroxide rinse as needed Tylenol/ibuprofen as needed Recheck with PCM this week Call today/tomorrow and schedule an appointment with your dentist for further evaluation Return to the ED with any worsening symptoms and/or development of fever, headache, facial swelling, swelling of lips/tongue/throat, trouble swallowing, drooling, hoarseness, neck pain/stiffness, chest pain, palpitations, syncope, shortness of breath, trouble breathing, abdominal pain, n/v/d, numbness/tingling , or other worsening symptoms that are concerning to you. Forms: Elevated Blood Pressure Referrals: [facility] [Provider Group] - Follow up as needed
[2017-01-13 09:42] VITALS: BP 149/105
== END 2017-01-13 09:48 | disposition home or self-care (01) ==
LOC: ER 08:33
PROC: 3E0T3BZ Introduction of Anesthetic Agent into Peripheral Nerves and Plexi, Percutaneous Approach (ICD-10-PCS; principal; 2017-01-13)
DX: K08.89 Other specified disorders of teeth and supporting structures (principal); I10 Essential (primary) hypertension
CPT/HCPCS: 99282; 64400; J3490

== ENCOUNTER 2017-01-25 18:51 | Emergency (ER) | payer MEDICAID ==
[2017-01-25] MEDS ORDERED: TRAMADOL HCL 50 MG TABLET PO ONE (20:02)
--- NOTE | 2017-01-25 20:04 | ER Document Report ---
ED General - General Chief Complaint: Low Back Pain Stated Complaint: ABDOMINAL PAIN Time Seen by Provider: 01/25/17 19:38 TRAVEL OUTSIDE OF THE [place] IN LAST 30 DAYS: No - HPI Patient complains to provider of: exacerbation of chronic low back pain Onset: Just prior to arrival Onset/Duration: Sudden Quality of pain: Achy Severity: Moderate Context: has been taking acetaminophen without improvement, usually takes percocet but hasnt had a prescription from her PCP since she hasnt followed up with them in 6 weeks Associated symptoms: None Exacerbated by: Denies Relieved by: Sitting Similar symptoms previously: Yes Recently seen / treated by doctor: No Notes: Patient states that she has the symptoms are currently once a month when her menstrual period is due. Patient states that she is due at the first of the month next week but that she has regularly irregular periods frequently. - Related Data Allergies/Adverse Reactions: aspirin [Aspirin] Allergy (Verified 01/25/17 18:55) Renal failure ibuprofen Allergy (Verified 01/25/17 18:55) Past Medical History - Social History Smoking Status: Never Smoker Family History: Hypertension - Past Medical History Cardiac Medical History: Reports: Hx Hypertension Pulmonary Medical History: Reports: Hx Asthma Neurological Medical History: Reports: Hx Seizures Renal/ Medical History: Reports: Hx Ovarian Cysts. Denies: Hx Peritoneal Dialysis Past Surgical History: Reports: Hx Gynecologic Surgery - Colposcopy - Immunizations Immunizations up to date: Yes Hx Diphtheria, Pertussis, Tetanus Vaccination: Yes Review of Systems - Review of Systems Constitutional: No symptoms reported Musculoskeletal: See HPI -: Yes All other systems reviewed and negative Physical Exam - Vital signs Vitals: Temp Pulse Resp BP Pulse Ox 98.7 F 90 14 163/103 H 100 01/25/17 18:54 01/25/17 18:54 01/25/17 18:54 01/25/17 18:54 01/25/17 18:54 - Notes Notes: PHYSICAL EXAM GENERAL: Alert, interacts well. LUNGS: Clear to auscultation bilaterally, no wheezes, rales, or rhonchi. No respiratory distress. HEART: Regular rate and rhythm. No murmurs, gallops, or rubs. ABDOMEN: Soft, nondistended, nontender. No guarding, rebound, or rigidity.. Bowel sounds present in all 4 quadrants. EXTREMITIES: Moves all 4 extremities spontaneously. No edema, radial and dorsalis pedis pulses 2/4 bilaterally. No cyanosis. Back: No evidence of para lumbar muscle tenderness or spinous process tenderness , step-offs, deformities. Patient able to ambulate without any difficulty. Gait is stable. NEUROLOGICAL: Alert and oriented x4. Normal speech. PSYCH: Normal affect, normal mood. SKIN: Warm, dry, normal turgor. No rashes or lesions noted. Course - Re-evaluation Re-evalutation: 01/26/17 01:52 Patient is a 31-year-old female is hemodynamic stable, no acute distress afebrile. Will discharge patient home with minimal pain medication and to follow-up with primary care. History and physical exam are benign for any acute abdominal or musculoskeletal or neural injury. No focal neurological deficits. After performing a Medical Screening Examination, I estimate there is LOW risk for ACUTE APPENDICITIS, BOWEL OBSTRUCTION, ACUTE CHOLECYSTITIS, PERFORATED DIVERTICULITIS, INCARCERATED HERNIA, PANCREATITIS, PELVIC INFLAMMATORY DISEASE, PERFORATED ULCER, ECTOPIC , or TUBO-OVARIAN ABSCESS, thus I consider the discharge disposition reasonable. Also, there is no evidence or peritonitis , sepsis, or toxicity. I have reevaluated this patient multiple times and no significant life threatening changes are noted. The patient and I have discussed the diagnosis and risks, and we agree with discharging home with close follow-up with the understanding that symptoms and presentations can change. We also discussed returning to the Emergency Department immediately if new or worsening symptoms occur. We have discussed the symptoms which are most concerning (e.g., bloody stool, fever, changing or worsening pain, vomiting) that necessitate immediate return. - Vital Signs Vital signs: Temp Pulse Resp BP Pulse Ox 98.0 F 74 17 142/108 H 99 01/25/17 20:21 01/25/17 20:21 01/25/17 20:21 01/25/17 20:21 01/25/17 20:21 Discharge - Discharge Clinical Impression: Low back pain Qualifiers: Chronicity: chronic Back pain laterality: bilateral Sciatica presence: without sciatica Qualified Code(s): M54.5 - Low back pain Condition: Good Disposition: HOME, SELF-CARE Additional Instructions: LOW BACK PAIN: Three out of every four people will have an episode of disabling back pain during their lifetime. Most commonly the pain is due to straining of the muscles and ligaments in the low back. Usual treatment includes: (1) Rest on a firm surface. Avoid lying on your stomach. (2) Ice pack the painful area. After a few days, gentle heat may be used intermittently to relax the area, or ice packs can be continued. (3) Medication may be needed -- muscle relaxers and antiinflammatory medicines are commonly used. (4) As the back improves, exercises are prescribed to strengthen the back and abdominal muscles. Your doctor will advise you on the proper care for your back at each stage in your recovery. You may be better in a few days -- or healing may take several weeks. If new symptoms of a "herniated disc" (radiation of pain, numbness, or tingling down the back of the leg or weakness in the leg) occur, you should be re-examined. Further testing may be necessary. ICE PACKS: Apply ice packs frequently against the painful area. Many different schedules are recommended, such as "20 minutes on, 20 minutes off" or "one hour ice, two hours rest." If you need to work, you may need to go longer between ice treatments. You should plan to have the area ice packed AT LEAST one fourth of the time. The ice should be applied over the wrap, tape, or splint, or over a layer of cloth -- not directly against the skin. Some ice bags have a built-in cloth and can be put directly on the skin. WARM PACKS: After approximately two days, apply gentle heat (such as a heating pad or hot water bottle) for about 20 to 30 minutes about every two hours -- at least four times daily. Warmth and elevation will help you make a more rapid recovery , and will ease the pain considerably. Do not use HOT heat, and never apply heat for longer than 30 minutes. The continuous heat can invisibly damage skin and muscles -- even when no burn is seen on the surface. Damaged muscles can make you MORE sore. FOLLOW-UP CARE: If you have been referred to a physician for follow-up care, call the physician s office for an appointment as you were instructed or within the next two days. If you experience worsening or a significant change in your symptoms, notify the physician immediately or return to the Emergency Department at any time for re-evaluation. Prescriptions: Tramadol HCl 50 mg PO BIDP PRN #10 tablet PRN Reason: Forms: Elevated Blood Pressure Referrals: JESSIKA DONOVAN PA-C [NO LOCAL MD] - Follow up in 3-5 days
[2017-01-25 20:24] VITALS: BP 142/108
== END 2017-01-25 20:18 | disposition home or self-care (01) ==
LOC: ER 18:51
DX: G89.29 Other chronic pain (principal); M54.5 Low back pain; I10 Essential (primary) hypertension; J45.909 Unspecified asthma, uncomplicated; Z88.6 Allergy status to analgesic agent
CPT/HCPCS: 99283

== ENCOUNTER 2017-02-08 14:00 | Emergency (ER) | payer MEDICAID ==
[2017-02-08 15:11] LABS: HEMATOCRIT 19.4 % (36.0-47.0); HGB HCT DIFFERENCE -2.6; MEAN CORPUSCULAR HEMOGLOBIN 16.8 pg (27.0-33.4); MEAN CORPUSCULAR HGB CONC 28.6 g/dL (32.0-36.0); MEAN CORPUSCULAR VOLUME 59 fl (80-97); RED BLOOD COUNT 3.31 10^6/uL (3.72-5.28); RED CELL DISTRIBUTION WIDTH 22.4 % (11.5-14.0); WHITE BLOOD COUNT 5.7 10^3/uL (4.0-10.5)
[2017-02-08 15:16] LABS: HEMOGLOBIN 5.6 g/dL (12.0-15.5)
[2017-02-08] MEDS ORDERED: NORMAL SALINE 250 ML IV PRN ×2 (15:16)
[2017-02-08 15:28] LABS: ALANINE AMINOTRANSFERASE 21 U/L (9-52); ALBUMIN 3.5 g/dL (3.5-5.0); ALKALINE PHOSPHATASE 74 U/L (38-126); ANION GAP 12 (5-19); ASPARTATE AMINO TRANSFERASE 18 U/L (14-36); BILIRUBIN,DIRECT 0.3 mg/dL (0.0-0.4); BILIRUBIN,TOTAL 0.4 mg/dL (0.2-1.3); BLOOD UREA NITROGEN 20 mg/dL (7-20); CALCIUM 8.8 mg/dL (8.4-10.2); CARBON DIOXIDE 22 mmol/L (22-30); CHLORIDE 108 mmol/L (98-107); CREATININE RESULT 1.78 mg/dL (0.52-1.25); GLUCOSE 95 mg/dL (75-110); POTASSIUM 3.8 mmol/L (3.6-5.0); SODIUM 141.5 mmol/L (137-145); TOTAL PROTEIN 7.1 g/dL (6.3-8.2)
--- NOTE | 2017-02-08 15:41 | ER Document Report ---
ED General - General Chief Complaint: Abnormal Lab Results Stated Complaint: HEMOBLOBIN CHECK Time Seen by Provider: 02/08/17 14:30 Mode of Arrival: Ambulatory Information source: Patient Notes: 31-year-old female chronic anemia iron deficiency lupus has been transfused multiple times in the past presents with complaints of being sent in by primary care physician for low hemoglobin. Patient notes it was 5.6 in the office. Patient denies any complaints states she feels pretty good TRAVEL OUTSIDE OF THE [place] IN LAST 30 DAYS: No - HPI Onset: Just prior to arrival Onset/Duration: Sudden Quality of pain: No pain Severity: None Pain Level: Denies Associated symptoms: None Exacerbated by: Denies Relieved by: Denies Similar symptoms previously: Yes Recently seen / treated by doctor: Yes - Related Data Allergies/Adverse Reactions: aspirin [Aspirin] Allergy (Verified 02/08/17 14:05) Renal failure ibuprofen Allergy (Verified 02/08/17 14:05) Past Medical History - Social History Smoking Status: Never Smoker Cigarette use (# per day): No Chew tobacco use (# tins/day): No Smoking Education Provided: No Frequency of alcohol use: None Drug Abuse: None Family History: Hypertension Patient has suicidal ideation: No Patient has homicidal ideation: No - Past Medical History Cardiac Medical History: Reports: Hx Hypertension Pulmonary Medical History: Reports: Hx Asthma Neurological Medical History: Reports: Hx Seizures Renal/ Medical History: Reports: Hx Ovarian Cysts. Denies: Hx Peritoneal Dialysis Past Surgical History: Reports: Hx Gynecologic Surgery - Colposcopy - Immunizations Immunizations up to date: Yes Hx Diphtheria, Pertussis, Tetanus Vaccination: Yes Review of Systems - Review of Systems Notes: REVIEW OF SYSTEMS: CONSTITUTIONAL : Denies fever, chills, or sweats. Denies recent illness. EENT: Denies eye, ear, throat, or mouth pain or symptoms. Denies nasal or sinus congestion or discharge. Denies throat, tongue, or mouth swelling or difficulty swallowing. CARDIOVASCULAR: Denies chest pain. Denies palpitations or racing or irregular heart beat. Denies ankle edema. RESPIRATORY: Denies cough, cold, or chest congestion. Denies shortness of breath, difficulty breathing, or wheezing. GASTROINTESTINAL: Denies abdominal pain or distention. Denies nausea, vomiting , or diarrhea. Denies blood in vomitus, stools, or per rectum. Denies black, tarry stools. Denies constipation. GENITOURINARY: Denies difficulty urinating, painful urination, burning, frequency, blood in urine, or discharge. FEMALE GENITOURINARY: Admits to chronic vaginal bleeding but none currently MUSCULOSKELETAL: Denies back or neck pain or stiffness. Denies joint pain or swelling. SKIN: Denies rash, lesions or sores. HEMATOLOGIC : Denies easy bruising or bleeding. LYMPHATIC: Denies swollen, enlarged glands. NEUROLOGICAL: Denies confusion or altered mental status. Denies passing out or loss of consciousness. Denies dizziness or lightheadedness. Denies headache. Denies weakness or paralysis or loss of use of either side. Denies problems with gait or speech. Denies sensory loss, numbness, or tingling. Denies seizures. PSYCHIATRIC: Denies anxiety or stress. Denies depression, suicidal ideation, or homicidal ideation. ALL OTHER SYSTEMS REVIEWED AND NEGATIVE. PHYSICAL EXAMINATION: GENERAL: Well-appearing, well-nourished and in no acute distress. HEAD: Atraumatic, normocephalic. EYES: Pupils equal round and reactive to light, extraocular movements intact, conjunctiva are normal. ENT: Nares patent, oropharynx clear without exudates. Moist mucous membranes. NECK: Normal range of motion, supple without lymphadenopathy LUNGS: Breath sounds clear to auscultation bilaterally and equal. No wheezes rales or rhonchi. HEART: Regular rate and rhythm without murmurs ABDOMEN: Soft, nontender, nondistended abdomen. No guarding, no rebound. No masses appreciated. Female : deferred Musculoskeletal: Normal range of motion, no pitting or edema. No cyanosis. NEUROLOGICAL: Cranial nerves grossly intact. Normal speech, normal gait. Normal sensory, motor exams PSYCH: Normal mood, normal affect. SKIN: Warm, Dry, normal turgor, no rashes or lesions noted. Dictation was performed using [employer] voice recognition software Physical Exam - Vital signs Vitals: Temp Pulse Resp BP Pulse Ox 97.6 F 92 18 141/94 H 100 02/08/17 14:08 02/08/17 14:08 02/08/17 14:08 02/08/17 14:08 02/08/17 14:08 Course - Re-evaluation Re-evalutation: 02/08/17 15:40 Patient will be transfused as her hemoglobin is noted to be low, she is chronically around 6-7 I will transfuse 2 units and discharged home to follow with primary care 02/08/17 18:41 Patient has done well is in no distress. I will discharge home at this time After performing a Medical Screening Examination, I estimate there is LOW risk for ACUTE CORONARY SYNDROME, RESPIRATORY FAILURE, SEPSIS OR MENINGITIS, thus I consider the discharge disposition reasonable. I have reevaluated this patient multiple times and no significant life threatening changes are noted. The patient and I have discussed the diagnosis and risks, and we agree with discharging home with close follow-up. We also discussed returning to the Emergency Department immediately if new or worsening symptoms occur. We have discussed the symptoms which are most concerning (e.g., changing or worsening pain, trouble swallowing or breathing, neck stiffness, fever) that necessitate immediate return. - Vital Signs Vital signs: Temp Pulse Resp BP Pulse Ox 97.9 F 76 15 118/80 100 02/08/17 18:35 02/08/17 18:35 02/08/17 18:35 02/08/17 18:35 02/08/17 18:35 - Laboratory Result Diagrams: 02/08/17 14:47 02/08/17 14:47 Laboratory results interpreted by me: 02/08/17 02/08/17 02/08/17 14:47 14:47 14:47 RBC 3.31 L Hgb 5.6 L Hct 19.4 L MCV 59 L MCH 16.8 L MCHC 28.6 L RDW 22.4 H Monocytes % (Manual) 1 L Chloride 108 H Creatinine 1.78 H Est GFR ( Amer) 40 L Est GFR (Non-Af Amer) 33 L Crossmatch See Detail Critical Care Note - Critical Care Note Total time excluding time spent on procedures (mins): 45 Comments: 45 minutes of critical care time spent in direct contact evaluating and reevaluating the patient, treating symptoms, reviewing labs and studies and speaking with family and consultants excluding any procedures Discharge - Discharge Clinical Impression: Anemia requiring transfusions Condition: Stable Disposition: HOME, SELF-CARE Instructions: Anemia ([facility]) Additional Instructions: You must follow-up with your physician regarding your anemia, return immediately if there are any other concerns
[2017-02-08 15:48] LABS: BASOPHILS % (MANUAL) 0 % (0-2); EOSINOPHILS % (MANUAL) 4 % (0-6); LYMPHOCYTES % (MANUAL) 40 % (13-45); TOTAL CELLS COUNTED 100
[2017-02-08 15:50] LABS: MICROCYTOSIS 4+
[2017-02-08 15:54] LABS: ANISOCYTOSIS 3+; HYPOCHROMASIA 2+; OVALOCYTES SLIGHT; POLYCHROMASIA SLIGHT; SCHISTOCYTES SLIGHT; TEAR DROP CELLS SLIGHT
[2017-02-08 15:57] LABS: POIKILOCYTOSIS 1+; TARGET CELLS SLIGHT
[2017-02-08 19:57] VITALS: BP 155/95
== END 2017-02-08 20:32 | disposition home or self-care (01) ==
LOC: ER 14:00
DX: D50.9 Iron deficiency anemia, unspecified (principal); M32.9 Systemic lupus erythematosus, unspecified
CPT/HCPCS: 99285; 86900; 86901; 36415; 36430; 86850; 85025; 80053; 86920; P9016

== ENCOUNTER 2017-02-14 18:01 | Emergency (ER) | payer MEDICAID ==
[2017-02-14] MEDS ORDERED: LIDOCAINE 2% INJ (20 MG/ML) 20 ML MDV INJ ONE (20:08)
--- NOTE | 2017-02-14 20:12 | ER Document Report ---
ED Skin Rash/Insect Bite/Abscs - General Chief Complaint: Skin Problem Stated Complaint: SKIN ISSUES Mode of Arrival: Ambulatory Information source: Patient TRAVEL OUTSIDE OF THE [place] IN LAST 30 DAYS: No - HPI Patient complains to provider of: Tender/swollen area Onset: Yesterday Onset/Duration: Gradual Quality of pain: Pressure Severity: Moderate Skin Character: Abscess Quality of rash: Painful Exacerbated by: Denies Relieved by: Denies Notes: Patient arrives with complaints of swollen area to the left breast. She states she noticed a few days ago and it is gotten somewhat bigger and tender. No redness. No fever. She denies any nausea, vomiting, diarrhea. She denies any rash. She also states that she has had left heel pain when she walks on her heel for the last few months. She does not have pain unless standing. No injury. No fever. No redness, swelling. No drainage. She denies any numbness , tingling, weakness. She denies any other complaints at this time. - Related Data Allergies/Adverse Reactions: aspirin [Aspirin] Allergy (Verified 02/14/17 18:20) Renal failure ibuprofen Allergy (Verified 02/14/17 18:20) Past Medical History - Social History Smoking Status: Unknown if Ever Smoked Family History: Hypertension Patient has suicidal ideation: No - Past Medical History Cardiac Medical History: Reports: Hx Hypertension Pulmonary Medical History: Reports: Hx Asthma Neurological Medical History: Reports: Hx Seizures Renal/ Medical History: Reports: Hx Ovarian Cysts. Denies: Hx Peritoneal Dialysis Past Surgical History: Reports: Hx Gynecologic Surgery - Colposcopy - Immunizations Immunizations up to date: Yes Hx Diphtheria, Pertussis, Tetanus Vaccination: Yes Review of Systems - Review of Systems -: Yes All other systems reviewed and negative Physical Exam - Vital signs Vitals: Temp Pulse BP Pulse Ox 99.3 F 84 152/104 H 92 02/14/17 18:22 02/14/17 18:22 02/14/17 18:22 02/14/17 18:22 - Notes Notes: GENERAL: alert, cooperative, nontoxic, no distress. HEAD: normocephalic, atraumatic EYES: conjunctiva pink without discharge, no external redness or swelling. EARS: no external swelling, no external redness NOSE: atraumatic, no external swelling MOUTH/THROAT: mucous membranes moist and pink NECK: soft, supple, full range of motion, no meningismus. CHEST: no distress, lungs clear and equal throughout. No wheezing, rales, rhonchi. CARDIAC: regular rate and rhythm, no murmur, normal capillary refill, normal pulses. BACK: full range of motion, no CVA tenderness. EXTREMITIES: full range of motion of all extremities. No redness, no swelling. Mild tenderness to palpation of the left heel. No foreign body. Normal pulse and sensation distally. NEURO: alert and oriented 3, no focal deficits, full range of motion of all extremities. PYSCH: appropriate mood, affect. Patient is cooperative. SKIN: pink, warm, dry, no rash. 1 cm tender fluctuant area at the base of the left breast. No overlying skin redness. No rash. Course - Re-evaluation Re-evalutation: 02/14/17 21:16 Patient is nontoxic appearing with stable vitals. The patient has a possible abscess to left breast at the base of the breast. No overlying skin redness. Performed an I&D. The only thing that was expressed from this area was blood. Will place her on antibiotics in case this is the start of an abscess due to her lupus history. She is also complaining of some heel pain. There is no sign of redness or infection to the heel. X-ray is negative. There is no heel spur noted to the plantar aspect of the heel. It is possible she could have some plantar fasciitis causing the pain in her heel. I will discharge the patient home on Bactrim and Ultram. Apply warm compresses to the breast. Follow-up if not better in 2 days. Follow-up sooner for increased pain, fever, redness, drainage, any further concerns. The patient is noted to have elevated blood pressure during today's emergency department visit. The patient was informed of this finding. The patient was instructed that this may be related to pre-hypertension and requires further evaluation with a primary care provider. The patient has no hypertensive symptoms at this time. The patient's emergency department workup and current diagnosis were explained to the patient and or family. Follow-up instructions were provided. Medications if prescribed were discussed. Instructions for when to return to the emergency department including specific worrisome symptoms were discussed with the patient and/or family. - Vital Signs Vital signs: Temp Pulse Resp BP Pulse Ox 99.3 F 84 152/104 H 92 02/14/17 18:22 02/14/17 18:22 02/14/17 18:22 02/14/17 18:22 - Diagnostic Test Radiology reviewed: Image reviewed, Reports reviewed - No acute abnormality of the foot Procedures - Incision and Drainage Left breast Type: Simple Anesthetic type: 1% Lidocaine Blade size: 11 I&D procedure: Betadine prep applied Incision Method: Incision made by scalpel Amount/type of drainage: Small amount of bloody drainage. Notes: 02/14/17 21:21 Broke up loculations with hemostats. Sterile dressing applied. Patient tolerated procedure well with no immediate complications. Discharge - Discharge Clinical Impression: Abscess of chest, Pain of left heel Condition: Stable Disposition: HOME, SELF-CARE Instructions: Abscess ([facility]), Plantar Fasciitis or Heel Spur ([facility]) Additional Instructions: Take medications as prescribed. Apply warm compresses to the left breast. Follow-up if not better in 2-3 days, sooner for increased pain, fever, redness, drainage, any further concerns. Your blood pressure was elevated during today's visit. Have this rechecked with your doctor. The medication you were prescribed today may cause drowsiness. Do not drive or operate heavy machinery while taking this medication. Prescriptions: Sulfamethoxazole/Trimethoprim [Bactrim Ds Tablet] 1 each PO BID #20 tablet Tramadol HCl [Ultram] 50 mg PO TID PRN #10 tablet PRN Reason: Forms: Elevated Blood Pressure
--- NOTE | 2017-02-14 20:52 | RADIOLOGY REPORT (SQ) ---
EXAM DESCRIPTION: FOOT LEFT COMPLETE COMPLETED DATE/TIME: 02/14/2017 8:31 pm REASON FOR STUDY: HEEL PAIN COMPARISON: None. NUMBER OF VIEWS: Three views. TECHNIQUE: AP, lateral and oblique radiographic images acquired of the left foot. LIMITATIONS: None. FINDINGS: MINERALIZATION: Normal. BONES: No acute fracture or dislocation. No worrisome bone lesions. JOINTS: No effusions. SOFT TISSUES: No soft tissue swelling. No foreign body. OTHER: No other significant finding. IMPRESSION: NO RADIOGRAPHIC EVIDENCE OF ACUTE INJURY. TECHNICAL DOCUMENTATION: JOB ID: [id number] [employer]- All Rights Reserved
[2017-02-14 22:07] VITALS: BP 161/105
== END 2017-02-14 22:07 | disposition home or self-care (01) ==
LOC: ER 18:01
PROC: 0H9UXZZ (ICD-10-PCS; principal; 2017-02-14)
DX: N61.1 Abscess of the breast and nipple (principal); M79.672 Pain in left foot; I10 Essential (primary) hypertension; J45.909 Unspecified asthma, uncomplicated; Z88.6 Allergy status to analgesic agent
CPT/HCPCS: 99283; 73630; 10060; J3490

== ENCOUNTER 2017-03-15 09:37 | Emergency (ER) | payer MEDICAID ==
--- NOTE | 2017-03-15 10:03 | ER Document Report ---
HPI - HPI Patient complains to provider of: lot of pain for 2 days Onset: Other - 2 days Onset/Duration: Persistent Quality of pain: Achy Pain Level: 4 Context: 31 yo female c/o pain all over, lumbar back for 2 days. Torodol shot helps it. No saddle anesthesia, no radiculopathy, no dysuria frequency or urgency no fever , no IV drug use. Exacerbated by: Standing, Movement Relieved by: Other - Toradol injection Similar symptoms previously: Yes Recently seen / treated by doctor: No - ROS ROS below otherwise negative: Yes Systems Reviewed and Negative: Yes All other systems reviewed and negative - REPRODUCTIVE Reproductive: DENIES: : - DERM Skin Color: Normal Past Medical History - General Information source: Patient - Social History Smoking Status: Current Every Day Smoker Frequency of alcohol use: None Drug Abuse: None Family History: Hypertension Patient has suicidal ideation: No Patient has homicidal ideation: No - Past Medical History Cardiac Medical History: Reports: Hx Hypertension - ON MEDICATION Denies: Hx Coronary Artery Disease, Hx Heart Attack Pulmonary Medical History: Denies: Hx Asthma, Hx Bronchitis, Hx COPD, Hx Pneumonia Neurological Medical History: Reports: Hx Seizures - BEGINNING OF 2016. Denies : Hx Cerebrovascular Accident Renal/ Medical History: Reports: Hx Ovarian Cysts. Denies: Hx Peritoneal Dialysis Musculoskeltal Medical History: Reports Hx Arthritis - RA Past Surgical History: Reports: Hx Gynecologic Surgery - Colposcopy - Immunizations Immunizations up to date: Yes Hx Diphtheria, Pertussis, Tetanus Vaccination: Yes Vertical Provider Document - CONSTITUTIONAL Agree With Documented VS: Yes Exam Limitations: No Limitations General Appearance: No Apparent Distress - INFECTION CONTROL TRAVEL OUTSIDE OF THE U.S. IN LAST 30 DAYS: No - HEENT HEENT: Normocephalic - NECK Neck: Supple - RESPIRATORY Respiratory: Breath Sounds Normal, No Respiratory Distress O2 Sat by Pulse Oximetry: 100 - CARDIOVASCULAR Cardiovascular: Regular Rate, Regular Rhythm - BACK Back: Normal Inspection - lumbar muscles mild tender - MUSCULOSKELETAL/EXTREMETIES Musculoskeletal/Extremeties: ZEHRA SILVERIO - NEURO Motor/Sensory: No Motor Deficit, No Sensory Deficit Deep Tendon Reflexes: 2+ - Bilateral ankle and patellar - DERM Integumentary: Warm, Dry, No Rash Course - Re-evaluation Re-evalutation: 03/15/17 10:53 Discussed with the patient that she needs increased dose of antihypertensives. Primary care doctor is Bobbi Donovan [facility] [place] is aware and has been told in the past that she needs more antihypertensives. - Vital Signs Vital signs: Temp Pulse Resp BP Pulse Ox 98.6 F 80 20 183/98 H 100 03/15/17 09:44 03/15/17 09:44 03/15/17 09:44 03/15/17 09:44 03/15/17 09:44 Discharge - Discharge Clinical Impression: High blood pressure reading, Hypertension, Lupus Low back pain Qualifiers: Chronicity: acute Back pain laterality: midline Sciatica presence: without sciatica Qualified Code(s): M54.5 - Low back pain Condition: Good Disposition: HOME, SELF-CARE Instructions: Low Back Pain ([facility]), Warm Packs ([facility]), Toradol Injection ([facility]), Muscle Relaxers ([facility]) Additional Instructions: Warm compress Tylenol See your doctor about your high blood pressure Return to the emergency room any concerns Please complete the patient satisfaction survey if you get one, and return it.. If you do not receive a survey, then you can go to the [facility] website, [email or web address] and place your comments about your very good care. Thank you very much. It was a pleasure being your medical provider today. Prescriptions: Cyclobenzaprine HCl [Flexeril 10 Mg Tablet] 10 mg PO TIDP PRN #20 tablet PRN Reason: Referrals: BOBBI DONOVAN PA-C [Primary Care Provider] - Follow up as needed
[2017-03-15] MEDS ORDERED: KETOROLAC TROMETHAMINE 60 MG/2 ML SDV IM ONE (10:41)
[2017-03-15 10:56] VITALS: BP 138/72
== END 2017-03-15 11:11 | disposition home or self-care (01) ==
LOC: ER 09:37
DX: M54.5 Low back pain (principal); M32.9 Systemic lupus erythematosus, unspecified; I10 Essential (primary) hypertension; Z79.899 Other long term (current) drug therapy; F17.200 Nicotine dependence, unspecified, uncomplicated
CPT/HCPCS: 99283; 96372; J1885

== ENCOUNTER 2017-05-10 10:30 | Emergency (ER) | payer MEDICAID ==
[2017-05-10 10:41] VITALS: BP 180/93
[2017-05-10] MEDS ORDERED: KETOROLAC TROMETHAMINE 60 MG/2 ML SDV IM ONE (11:27)
--- NOTE | 2017-05-10 11:33 | ER Document Report ---
ED General - General Chief Complaint: Back Pain Stated Complaint: BACK PAIN Time Seen by Provider: 05/10/17 11:26 Mode of Arrival: Ambulatory Information source: Patient Notes: 31-year-old female presents with complaints of left flank pain. Patient notes this is similar to her previous back pains, she notes the pain has been keeping her up for the past 3 nights. She denies any cauda equina concerns. She denies any IV drug use. Patient does have a history of lupus and is on 20 mg of steroids daily and thinks that her lupus may be flaring up as well. TRAVEL OUTSIDE OF THE U[place]S. IN LAST 30 DAYS: No - HPI Onset: Other - 3 day duration Onset/Duration: Persistent Quality of pain: Achy Severity: Mild Pain Level: 1 Associated symptoms: Body/muscle aches Exacerbated by: Movement Relieved by: Denies Similar symptoms previously: Yes Recently seen / treated by doctor: Yes Notes: Patient ambulating in the room with no difficulty - Related Data Allergies/Adverse Reactions: aspirin [Aspirin] Allergy (Verified 05/10/17 10:34) Renal failure ibuprofen Allergy (Verified 05/10/17 10:34) Past Medical History - Social History Smoking Status: Never Smoker Cigarette use (# per day): No Chew tobacco use (# tins/day): No Smoking Education Provided: No Frequency of alcohol use: None Drug Abuse: None Family History: Hypertension Patient has suicidal ideation: No Patient has homicidal ideation: No - Past Medical History Cardiac Medical History: Reports: Hx Hypertension - ON MEDICATION Denies: Hx Coronary Artery Disease, Hx Heart Attack Pulmonary Medical History: Denies: Hx Asthma, Hx Bronchitis, Hx COPD, Hx Pneumonia Neurological Medical History: Reports: Hx Seizures - BEGINNING OF 2016. Denies : Hx Cerebrovascular Accident Renal/ Medical History: Reports: Hx Ovarian Cysts. Denies: Hx Peritoneal Dialysis Musculoskeltal Medical History: Reports Hx Arthritis - RA Past Surgical History: Reports: Hx Gynecologic Surgery - Colposcopy, Hx Oral Surgery - wisdom - Immunizations Immunizations up to date: Yes Hx Diphtheria, Pertussis, Tetanus Vaccination: Yes Review of Systems - Review of Systems Notes: REVIEW OF SYSTEMS: CONSTITUTIONAL : Denies fever, chills, or sweats. Denies recent illness. EENT: Denies eye, ear, throat, or mouth pain or symptoms. Denies nasal or sinus congestion or discharge. Denies throat, tongue, or mouth swelling or difficulty swallowing. CARDIOVASCULAR: Denies chest pain. Denies palpitations or racing or irregular heart beat. Denies ankle edema. RESPIRATORY: Denies cough, cold, or chest congestion. Denies shortness of breath, difficulty breathing, or wheezing. GASTROINTESTINAL: Denies abdominal pain or distention. Denies nausea, vomiting , or diarrhea. Denies blood in vomitus, stools, or per rectum. Denies black, tarry stools. Denies constipation. GENITOURINARY: Denies difficulty urinating, painful urination, burning, frequency, blood in urine, or discharge. FEMALE GENITOURINARY: Denies vaginal bleeding, heavy or abnormal periods, irregular periods. Denies vaginal discharge or odor. MUSCULOSKELETAL: Admits to right flank pain SKIN: Denies rash, lesions or sores. HEMATOLOGIC : Denies easy bruising or bleeding. LYMPHATIC: Denies swollen, enlarged glands. NEUROLOGICAL: Denies confusion or altered mental status. Denies passing out or loss of consciousness. Denies dizziness or lightheadedness. Denies headache. Denies weakness or paralysis or loss of use of either side. Denies problems with gait or speech. Denies sensory loss, numbness, or tingling. Denies seizures. PSYCHIATRIC: Denies anxiety or stress. Denies depression, suicidal ideation, or homicidal ideation. ALL OTHER SYSTEMS REVIEWED AND NEGATIVE. PHYSICAL EXAMINATION: GENERAL: Well-appearing, well-nourished and in no acute distress. HEAD: Atraumatic, normocephalic. EYES: Pupils equal round and reactive to light, extraocular movements intact, conjunctiva are normal. ENT: Nares patent, oropharynx clear without exudates. Moist mucous membranes. NECK: Normal range of motion, supple without lymphadenopathy LUNGS: Breath sounds clear to auscultation bilaterally and equal. No wheezes rales or rhonchi. HEART: Regular rate and rhythm without murmurs ABDOMEN: Soft, nontender, nondistended abdomen. No guarding, no rebound. No masses appreciated. Female : deferred Musculoskeletal: Normal range of motion, no pitting or edema. No cyanosis. NEUROLOGICAL: Cranial nerves grossly intact. Normal speech, normal gait. Normal sensory, motor exams PSYCH: Normal mood, normal affect. SKIN: Warm, Dry, normal turgor, no rashes or lesions noted. Dictation was performed using Dragon voice recognition software Physical Exam - Vital signs Vitals: Temp Pulse Resp BP Pulse Ox 98.1 F 58 L 16 180/93 H 99 05/10/17 10:40 05/10/17 10:40 05/10/17 10:40 05/10/17 10:40 05/10/17 10:40 Course - Re-evaluation Re-evalutation: 05/10/17 11:55 Patient requests a shot medication that she gets here often that seems to resolve her pain, looking back at her recent back pain visit it appears Toradol IM is what she receives. Patient has an allergy to ibuprofen but was able to take a shot with no difficulty. Had discussion with the patient and there is no cauda equina concerns at this time, we did discuss the use of long-term steroids she is afebrile at this time no signs of epidural abscess. We will actually increase her steroids due to concern of lupus flareup with understand that she must follow-up with her primary care physician regarding this change in medication Patient instructed on risks and benefits of medications prescribed. Denies any concerns regarding such. After performing a Medical Screening Examination, I estimate there is LOW risk for EXPANDING OR RUPTURED ABDOMINAL AORTIC ANEURYSM, CAUDA EQUINA SYNDROME, EPIDURAL MASS LESION, or HERNIATED DISK CAUSING SEVERE SPINAL STENOSIS, thus I consider the discharge disposition reasonable. I have reevaluated this patient multiple times and no significant life threatening changes are noted. The patient and I have discussed the diagnosis and risks, and we agree with discharging home and close follow-up. We also discussed returning to the Emergency Department immediately if new or worsening symptoms occur with the understanding that symptoms and presentations can change. We have discussed the symptoms which are most concerning (e.g., saddle anesthesia, urinary or bowel incontinence or retention, changing or worsening pain) that necessitate immediate return. - Vital Signs Vital signs: Temp Pulse Resp BP Pulse Ox 98.1 F 58 L 16 180/93 H 99 05/10/17 10:40 05/10/17 10:40 05/10/17 11:20 05/10/17 10:40 05/10/17 10:40 Discharge - Discharge Clinical Impression: Back pain Condition: Stable Disposition: HOME, SELF-CARE Instructions: Low Back Pain ([facility]) Additional Instructions: Follow up with your physician tomorrow for further care or return to the ED IMMEDIATELY if symptoms worsen or new concerns occur. If you cannot afford to follow up with your primary care physician a list of low cost clinics have been provided at the end of your discharge papers as well. Prescriptions: Diazepam [Valium 5 mg Tablet] 5 mg PO QIDP PRN #15 tablet PRN Reason: Prednisone 60 mg PO DAILY 5 Days tablet
== END 2017-05-10 11:40 | disposition home or self-care (01) ==
LOC: ER 10:30
DX: M54.9 Dorsalgia, unspecified (principal); M32.9 Systemic lupus erythematosus, unspecified; Z79.52 Long term (current) use of systemic steroids
CPT/HCPCS: 99283; 96372; J1885

== ENCOUNTER 2017-06-02 11:20 | Emergency (ER) | payer MEDICAID ==
[2017-06-02 11:35] VITALS: BP 152/100
[2017-06-02] MEDS ORDERED: LIDOCAINE 2% VISCOUS SOLN 20 ML UDCUP PO ONE (11:53)
[2017-06-02] MEDS ORDERED: PENICILLIN V POTASSIUM 500 MG TABLET PO ONE (11:53)
[2017-06-02] MEDS ORDERED: ACETAMINOPHEN 325 MG TABLET PO ONE (11:53)
--- NOTE | 2017-06-02 11:57 | ER Document Report ---
ED Oral Problem - General Chief Complaint: Toothache Stated Complaint: TOOTH PAIN Time Seen by Provider: 06/02/17 11:29 Mode of Arrival: Ambulatory Information source: Patient Notes: 31-year-old female presents to ED for multiple dental cavities with toothache to tooth number 5 which is partially broken off. She states she was chewing ice this morning when she heard part of it broke off and cause pain to shoot to her tooth and jaw. TRAVEL OUTSIDE OF THE [place].S. IN LAST 30 DAYS: No - HPI Patient complains to provider of: Toothache Onset: This morning Onset: Gradual Quality of pain: Sharp, Throbbing Severity: Moderate Pain Level: 3 Associated symptoms: Toothache Worsened by: Cold Relieved by: Nothing Similar symptoms previously: Yes Recently seen / treated by doctor/dentist: No - Related Data Allergies/Adverse Reactions: aspirin [Aspirin] Allergy (Verified 06/02/17 11:21) Renal failure ibuprofen Allergy (Verified 06/02/17 11:21) Past Medical History - General Information source: Patient - Social History Smoking Status: Never Smoker Cigarette use (# per day): No Chew tobacco use (# tins/day): No Smoking Education Provided: No Frequency of alcohol use: None Drug Abuse: None Lives with: Family Family History: CAD, Hyperlipidemia, Hypertension Patient has suicidal ideation: No Patient has homicidal ideation: No - Past Medical History Cardiac Medical History: Reports: Hx Hypertension - ON MEDICATION Pulmonary Medical History: Reports: None EENT Medical History: Reports: None Neurological Medical History: Reports: Hx Seizures - BEGINNING OF 2016 Endocrine Medical History: Reports: None Renal/ Medical History: Reports: Hx Ovarian Cysts Malignancy Medical History: Reports: None GI Medical History: Reports: None Musculoskeltal Medical History: Reports Hx Arthritis - RA, Reports Other - Lupus Skin Medical History: Reports None Psychiatric Medical History: Reports: None Traumatic Medical History: Reports: None Infectious Medical History: Reports: None Past Surgical History: Reports: Hx Gynecologic Surgery - Colposcopy, Hx Oral Surgery - wisdom - Immunizations Immunizations up to date: Yes Hx Diphtheria, Pertussis, Tetanus Vaccination: Yes Review of Systems - Review of Systems Constitutional: No symptoms reported EENT: Dental problem Cardiovascular: No symptoms reported Respiratory: No symptoms reported Gastrointestinal: No symptoms reported Genitourinary: No symptoms reported Female Genitourinary: No symptoms reported Musculoskeletal: No symptoms reported Skin: No symptoms reported Hematologic/Lymphatic: No symptoms reported Neurological/Psychological: No symptoms reported -: Yes All other systems reviewed and negative Physical Exam - Vital signs Vitals: Temp Pulse Resp BP Pulse Ox 98.9 F 84 20 146/105 H 100 06/02/17 11:24 06/02/17 11:24 06/02/17 11:24 06/02/17 11:24 06/02/17 11:24 Interpretation: Normal - General General appearance: Appears well, Alert - HEENT Head: Normocephalic, Atraumatic Eyes: Normal Pupils: PERRL Ears: Normal External canal: Normal Tympanic membrane: Normal Sinus: Normal Nasal: Normal Mouth/Lips: Caries Mucous membranes: Normal Teeth diagram: 1 - Worst pain is in tooth #5. Patient has met multiple cavities throughout her mouth. States she was chewing ice this morning and broke this tooth. - Respiratory Respiratory status: No respiratory distress Chest status: Nontender Breath sounds: Normal Chest palpation: Normal - Cardiovascular Rhythm: Regular Heart sounds: Normal auscultation Murmur: No - Abdominal Inspection: Normal Distension: No distension Bowel sounds: Normal Tenderness: Nontender Organomegaly: No organomegaly - Back Back: Normal, Nontender - Extremities General upper extremity: Normal inspection, Nontender, Normal color, Normal ROM , Normal temperature General lower extremity: Normal inspection, Nontender, Normal color, Normal ROM , Normal temperature, Normal weight bearing. No: Mildred's sign - Neurological Neuro grossly intact: Yes Cognition: Normal Orientation: AAOx4 Sameer Coma Scale Eye Opening: Spontaneous Sameer Coma Scale Verbal: Oriented Sameer Coma Scale Motor: Obeys Commands [place] Coma Scale Total: 15 Speech: Normal Motor strength normal: LUE, RUE, LLE, RLE Sensory: Normal - Psychological Associated symptoms: Normal affect, Normal mood - Skin Skin Temperature: Warm Skin Moisture: Dry Skin Color: Normal Course - Re-evaluation Re-evalutation: 06/02/17 21:09 She was treated with Tylenol Penicillin VK and viscous lidocaine for her dental pain while she was in the emergency room. She was discharged home with a syringe of lidocaine for the pain and penicillin VK for the infection. Patient to follow with the dentist. - Vital Signs Vital signs: Temp Pulse Resp BP Pulse Ox 98.9 F 84 20 152/100 H 100 06/02/17 11:24 06/02/17 11:24 06/02/17 11:24 06/02/17 11:35 06/02/17 11:24 Discharge - Discharge Clinical Impression: Pain due to dental caries Hypertension Qualifiers: Hypertension type: unspecified Qualified Code(s): I10 - Essential (primary) hypertension Condition: Stable Disposition: HOME, SELF-CARE Instructions: Dentist Additional Instructions: TOOTHACHE: Your pain is due to dental decay. The tooth must be repaired in order for you to feel better. You will, therefore, be referred to a dentist. We do not have dentists on the staff at [facility]. Severe swelling or drainage around a tooth usually means a dental abscess. This also requires evaluation and treatment by the dentist, but antibiotics may be prescribed while awaiting dental treatment. You should be rechecked immediately if you develop major swelling of the face, increasing pain, a lump in the jaw or gums, headache, difficulty swallowing, or fever. PENICILLIN V K: You have been given a prescription for Penicillin VK. Your physician has determined that this is the best antibiotic for your condition. Pen VK can be taken with meals, however more of the antibiotic gets into the bloodstream if it's taken on an empty stomach. Penicillin usually has no side effects. However, allergy to penicillins is common. If you have had an allergic reaction to any drug of the penicillin family, you should never take any other penicillin. Notify your doctor at once if you develop hives, itching, swelling, faintness, or shortness of breath. FOLLOW-UP CARE: You have been referred for follow-up care to the dentists listed below. Call the dentists office for an appointment as you were instructed or within the next two days. If you experience worsening or a significant change in your symptoms, notify the physician immediately or return to the Emergency Department at any time for re-evaluation. [facility] [address] [place], [place] Saturday mornings, by appointment [facility] [address] [place] [address] [facility] [address] [facility] [address] [email or web address] [address] [place] [address] Saturday- 8:00am to 5:00 pm Will see patients from other [facility]. Charges based on income and family size and accepts Medicare, Medicaid, and Insurances Will pull molars [facility] [address] Hours of Operation 8:00 am - 4:30 pm weekdays The following dental offices accept Medicaid: [facility] [address] [address] D[address] Dr. Dela Cruz Tu Acharya, Kay, and [place] oral surgery Dr. Mary ([place]) Dr. Courtney ([place]) [facility] Drs. Rouse ([place]) Dr. Dai ([place]) [facility] Dr. Chopra ([place]) Drs. Champagne and ([place]) Medicaid Care Line Prescriptions: Penicillin V Potassium [Penicillin Vk 500 mg Tablet] 500 mg PO BID #20 tablet Forms: Elevated Blood Pressure, Return to Work Referrals: LONG,CURT, DDS [ACTIVE STAFF] - Follow up as needed
== END 2017-06-02 12:10 | disposition home or self-care (01) ==
LOC: ER 11:20
DX: K02.9 Dental caries, unspecified (principal); K08.89 Other specified disorders of teeth and supporting structures; I10 Essential (primary) hypertension; Z88.6 Allergy status to analgesic agent
CPT/HCPCS: 99282; J3490 ×3

== ENCOUNTER 2017-06-06 14:22 | Emergency (ER) | payer MEDICAID ==
[2017-06-06] MEDS ORDERED: ONDANSETRON 4 MG TAB.RAPDIS PO ONE (15:05)
[2017-06-06 15:57] LABS: HEMATOCRIT 22.8 % (36.0-47.0); MEAN CORPUSCULAR HEMOGLOBIN 17.5 pg (27.0-33.4); MEAN CORPUSCULAR HGB CONC 29.5 g/dL (32.0-36.0); PLATELET COUNT 516 10^3/uL (150-450); RED BLOOD COUNT 3.86 10^6/uL (3.72-5.28); RED CELL DISTRIBUTION WIDTH 20.6 % (11.5-14.0); WHITE BLOOD COUNT 10.6 10^3/uL (4.0-10.5)
[2017-06-06 16:09] LABS: ANION GAP 10 (5-19); BLOOD UREA NITROGEN 17 mg/dL (7-20); CALCIUM 9.5 mg/dL (8.4-10.2); CARBON DIOXIDE 21 mmol/L (22-30); CHLORIDE 111 mmol/L (98-107); GLUCOSE 96 mg/dL (75-110); POTASSIUM 4.8 mmol/L (3.6-5.0); SODIUM 141.8 mmol/L (137-145)
[2017-06-06 16:22] LABS: ABSOLUTE LYMPHOCYTES# (MANUAL) 1.6 10^3/uL (0.5-4.7); ABSOLUTE MONOCYTES # (MANUAL) 0.2 10^3/uL (0.1-1.4); ABSOLUTE NEUTROPHILS# (MANUAL) 8.8 10^3/uL (1.7-8.2); BASOPHILS % (MANUAL) 0 % (0-2); EOSINOPHILS % (MANUAL) 0 % (0-6); LYMPHOCYTES % (MANUAL) 15 % (13-45); MONOCYTES % (MANUAL) 2 % (3-13); SEGMENTED NEUTROPHILS % (MAN) 83 % (42-78); TOTAL CELLS COUNTED 100
[2017-06-06 16:25] LABS: ANISOCYTOSIS 2+; PLATELET COMMENT INCREASED; PLATELET LARGE PRESENT
[2017-06-06 16:26] LABS: OVALOCYTES 1+; POIKILOCYTOSIS 1+; TEAR DROP CELLS SLIGHT
[2017-06-06 16:28] LABS: HEMOGLOBIN 6.7 g/dL (12.0-15.5); MEAN CORPUSCULAR VOLUME 59 fl (80-97)
--- NOTE | 2017-06-06 16:30 | ER Document Report ---
ED Medical Screen (RME) - General Chief Complaint: Pain All Over Stated Complaint: BODY ACHES Time Seen by Provider: 06/06/17 15:03 TRAVEL OUTSIDE OF THE U.S. IN LAST 30 DAYS: No - HPI Patient complains to provider of: Pain Notes: 06/06/17 16:29 Patient states that she usually takes Percocet for her lupus pain. However lately the Percocet is not working. She states she usually comes here to the emergency department when this occurs and she is given a shot and she feels much better. Patient denies any other complaints. I did ask her if she is usually ill when her Percocet does not Alleviate her pain. She states that now it just happens on occasion and then she needs the shot. Patient's hemoglobin found to be 6. She will be transferred to the Main emergency department for further evaluation and treatment - Related Data Allergies/Adverse Reactions: aspirin [Aspirin] Allergy (Verified 06/06/17 14:27) Renal failure ibuprofen Allergy (Verified 06/06/17 14:27) Past Medical History - Social History Chew tobacco use (# tins/day): No Frequency of alcohol use: None Drug Abuse: None - Past Medical History Cardiac Medical History: Reports: Hx Hypertension - ON MEDICATION Denies: Hx Coronary Artery Disease, Hx Heart Attack Pulmonary Medical History: Denies: Hx Asthma, Hx Bronchitis, Hx COPD, Hx Pneumonia Neurological Medical History: Reports: Hx Seizures - BEGINNING OF 2016. Denies : Hx Cerebrovascular Accident Renal/ Medical History: Reports: Hx Ovarian Cysts. Denies: Hx Peritoneal Dialysis Musculoskeltal Medical History: Reports Hx Arthritis - RA Past Surgical History: Reports: Hx Gynecologic Surgery - Colposcopy, Hx Oral Surgery - wisdom - Immunizations Immunizations up to date: Yes Hx Diphtheria, Pertussis, Tetanus Vaccination: Yes History of Influenza Vaccine for 02/2017 - 07/2017 Season: Yes Influenza Administration Date for 02/2017 - 07/2017 Season: 02/03/17 Physical Exam - Vital signs Vitals: Temp Pulse Resp BP Pulse Ox 98.5 F 64 20 180/96 H 100 06/06/17 14:30 06/06/17 14:30 06/06/17 14:30 06/06/17 14:30 06/06/17 14:30 Course - Vital Signs Vital signs: Temp Pulse Resp BP Pulse Ox 98.5 F 64 20 180/96 H 100 06/06/17 14:30 06/06/17 14:30 06/06/17 14:30 06/06/17 14:30 06/06/17 14:30 - Laboratory Result Diagrams: 06/06/17 15:40 06/06/17 15:40 Laboratory results interpreted by me: 06/06/17 15:40 Chloride 111 H Carbon Dioxide 21 L Creatinine 2.04 H Est GFR ( Amer) 35 L Est GFR (Non-Af Amer) 29 L
[2017-06-06] MEDS ORDERED: NORMAL SALINE 250 ML IV PRN (16:31)
[2017-06-06] MEDS ORDERED: HYDROMORPHONE HCL INJ/PF 2 MG/ML AMPULE IV ONE ×4 (16:39→23:18)
--- NOTE | 2017-06-06 19:10 | ER Document Report ---
ED General Pain - General Chief Complaint: Pain All Over Stated Complaint: BODY ACHES Time Seen by Provider: 06/06/17 15:03 Notes: Patient is complaining of pain all over, in particular in her back, that started yesterday. She has a history of lupus and this is sort of symptoms that she gets from a flare of her lupus. When this happens and is very severe, she is usually low hemoglobin and requires a transfusion. Her most recent transfusions were in February. Patient does not have unusual or excessive bleeding anywhere. In the past, she has not only received transfusions, but she is also gotten infusions of iron. She has been under the care of local crystal gazer, but no longer has her health insurance and is not able to get in to see them. Patient has been vomiting once last evening and once today. Has not had any diarrhea. No abdominal pains. No chest pains. No cough or cold or chest congestion. No urinary tract symptoms. Denies fever. TRAVEL OUTSIDE OF THE [place] IN LAST 30 DAYS: No - Related Data Allergies/Adverse Reactions: aspirin [Aspirin] Allergy (Verified 06/06/17 14:27) Renal failure ibuprofen Allergy (Verified 06/06/17 14:27) Past Medical History - Social History Smoking Status: Never Smoker Chew tobacco use (# tins/day): No Frequency of alcohol use: None Drug Abuse: None Family History: Reviewed & Not Pertinent, CAD, Hyperlipidemia, Hypertension Patient has suicidal ideation: No Patient has homicidal ideation: No - Past Medical History Cardiac Medical History: Reports: Hx Hypertension - ON MEDICATION Neurological Medical History: Reports: Hx Seizures - BEGINNING OF 2016. Denies : Hx Cerebrovascular Accident Renal/ Medical History: Reports: Hx Ovarian Cysts Musculoskeltal Medical History: Reports Hx Arthritis - RA Surgical Hx: Other - Patient is trying to arrange to have a hysterectomy but does not have insurance. Past Surgical History: Reports: Hx Gynecologic Surgery - Colposcopy, Hx Oral Surgery - wisdom - Immunizations Immunizations up to date: Yes Hx Diphtheria, Pertussis, Tetanus Vaccination: Yes Review of Systems - Review of Systems Notes: CONSTITUTIONAL : Denies fever. CARDIOVASCULAR: Denies chest pain. RESPIRATORY: Denies cough, chest congestion, or shortness of breath. GASTROINTESTINAL: Denies abdominal pain or nausea, vomiting, or diarrhea. GENITOURINARY: Denies difficulty or painful urinating, urinary frequency, blood in urine. Physical Exam - Vital signs Vitals: Temp Pulse Resp BP Pulse Ox 98.5 F 64 20 180/96 H 100 06/06/17 14:30 06/06/17 14:30 06/06/17 14:30 06/06/17 14:30 06/06/17 14:30 Interpretation: Hypertensive - Notes Notes: PHYSICAL EXAMINATION: GENERAL: Well-appearing, no acute distress. Blood pressure elevated moderately. HEAD: Atraumatic, normocephalic. NECK: Normal range of motion, supple. LUNGS: Breath sounds clear and equal bilaterally. HEART: Regular rate and rhythm without murmurs heard. ABDOMEN: Soft, nontender. No guarding or rebound or masses felt. Course - Re-evaluation Re-evalutation: 06/06/17 19:13 Patient will be transfused 2 units of packed cells and then discharged. - Vital Signs Vital signs: Temp Pulse Resp BP Pulse Ox 97.9 F 62 19 145/93 H 100 06/06/17 20:00 06/06/17 20:00 06/06/17 20:00 06/06/17 19:02 06/06/17 20:00 - Laboratory Result Diagrams: 06/06/17 15:40 06/06/17 15:40 Laboratory results interpreted by me: 06/06/17 06/06/17 06/06/17 15:40 15:40 18:20 WBC 10.6 H Hgb 6.7 L Hct 22.8 L MCV 59 L MCH 17.5 L MCHC 29.5 L RDW 20.6 H Plt Count 516 H Seg Neuts % (Manual) 83 H Monocytes % (Manual) 2 L Abs Neuts (Manual) 8.8 H Chloride 111 H Carbon Dioxide 21 L Creatinine 2.04 H Est GFR ( Amer) 35 L Est GFR (Non-Af Amer) 29 L Crossmatch See Detail Discharge - Discharge Clinical Impression: Anemia, Lupus Condition: Stable Disposition: HOME, SELF-CARE Additional Instructions: Anemia You have been found to have a significant anemia (a lower than normal amount of red blood cells). Anemia can be due to iron deficiency, vitamin deficiency, abnormal bleeding, or internal diseases. Usually, further tests are necessary to find the exact cause of the anemia. The most common cause of anemia is iron deficiency, often brought on by blood loss. This can be treated with iron supplements. If this appears to be the most likely cause, iron tablets may be prescribed even before all tests are complete. Contact the doctor at once if you note black or tarry-looking stools, bloody vomiting, shortness of breath, chest pain, or faintness. Oral Narcotic Medication You have been given a prescription for pain control. This medication is a narcotic. It's best taken with food, as nausea can result if taken on an empty stomach. Don't operate machinery or drive within six hours of taking this medication. Do not combine this medicine with alcohol, or with any medication which can cause sedation (such as cold tablets or sleeping pills) unless you get permission from the physician. Narcotics tend to cause constipation. If possible, drink plenty of fluids and eat a diet high in fiber and fruits. The plan is for you to be transfused 2 units of red blood cells and then discharge. Follow-up with your primary care physician as soon as possible. FOLLOW-UP CARE: If you have been referred to a physician for follow-up care, call the physician s office for an appointment as you were instructed or within the next two days. If you experience worsening or a significant change in your symptoms, notify the physician immediately or return to the Emergency Department at any time for re-evaluation. Prescriptions: Hydromorphone HCl [Dilaudid 2 mg Tablet] 2 mg PO Q4HP PRN #10 tablet PRN Reason:
[2017-06-06] MEDS ORDERED: HYDROMORPHONE HCL INJ/PF 2 MG/ML AMPULE ONE (21:33)
[2017-06-07] MEDS ORDERED: HYDROMORPHONE HCL 2 MG TABLET PO ONE (00:24)
[2017-06-07 00:37] VITALS: BP 177/112
[2017-06-07 12:36] LABS: PATH REVIEW PATHOLOGIST REVIEWED
== END 2017-06-07 00:37 | disposition home or self-care (01) ==
LOC: ER 14:22
DX: D64.9 Anemia, unspecified (principal); M32.9 Systemic lupus erythematosus, unspecified; M79.1 Myalgia
CPT/HCPCS: 96376; 99284; 96374; 86900; 86901; 36415; 36430; 86850; 84703; 85025; 81025; 80048; 86920; P9016; S0119; J3490; J1170

== ENCOUNTER 2017-07-02 21:18 | Emergency (ER) | payer MEDICAID ==
--- NOTE | 2017-07-02 22:47 | ER Document Report ---
ED General - General Chief Complaint: Pain All Over Stated Complaint: BODY ACHES Time Seen by Provider: 07/02/17 22:14 Notes: Patient is a 31-year-old female with past medical history of hypertension, lupus nephritis, and morbid obesity who presents with diffuse body pain. Patient states this is very similar to her lupus flares that she has had in the past. She does not currently have access to an outpatient provider and has not followed with hematology or rheumatology in several years due to lack of establishing follow-up care. She is not currently on any immunosuppressive therapies. She was seen in the emergency department approximately 1 month ago for similar complaints, was found to be critically anemic at that time and had blood transfusions which she has required in the past. Patient does describe the pain as being a dull, aching, throbbing pain to her low back, bilateral hips and legs which is typical for her lupus flares. Nothing seems to improve or worsen that pain. She states this feels identical to similar symptoms she has had in the past. She denies any fever, vomiting, chest pain, shortness of breath, headache, weakness, numbness, or confusion. TRAVEL OUTSIDE OF THE [place] IN LAST 30 DAYS: No - Related Data Allergies/Adverse Reactions: aspirin [Aspirin] Allergy (Verified 06/06/17 14:27) Renal failure ibuprofen Allergy (Verified 06/06/17 14:27) Past Medical History - General Information source: Patient - Social History Smoking Status: Never Smoker Frequency of alcohol use: None Drug Abuse: None Lives with: Family Family History: Reviewed & Not Pertinent, CAD, Hyperlipidemia, Hypertension - Past Medical History Cardiac Medical History: Reports: Hx Hypertension - ON MEDICATION Denies: Hx Coronary Artery Disease, Hx Heart Attack Pulmonary Medical History: Denies: Hx Asthma, Hx Bronchitis, Hx COPD, Hx Pneumonia Neurological Medical History: Reports: Hx Seizures - BEGINNING OF 2017. Denies : Hx Cerebrovascular Accident Renal/ Medical History: Reports: Hx Ovarian Cysts. Denies: Hx Peritoneal Dialysis Musculoskeltal Medical History: Reports Hx Arthritis - RA Past Surgical History: Reports: Hx Gynecologic Surgery - Colposcopy, Hx Oral Surgery - wisdom - Immunizations Immunizations up to date: Yes Hx Diphtheria, Pertussis, Tetanus Vaccination: Yes Review of Systems - Review of Systems Notes: Constitutional: Negative for fever. HENT: Negative for sore throat. Eyes: Negative for visual changes. Cardiovascular: Negative for chest pain. Respiratory: Negative for shortness of breath. Gastrointestinal: Negative for abdominal pain, vomiting or diarrhea. Genitourinary: Negative for dysuria. Musculoskeletal: Positive for diffuse muscular skeletal pain Skin: Negative for rash. Neurological: Negative for headaches, weakness or numbness. 10 point ROS negative except as marked above and in HPI. Physical Exam - Vital signs Vitals: Temp Pulse Resp BP Pulse Ox 98.8 F 77 18 179/121 H 100 07/02/17 21:25 07/02/17 21:25 07/02/17 21:25 07/02/17 21:25 07/02/17 21:25 Interpretation: Hypertensive Notes: PHYSICAL EXAMINATION: GENERAL: Appears moderately uncomfortable but no acute distress HEAD: Atraumatic, normocephalic. EYES: Pupils equal round and reactive to light, extraocular movements intact, sclera anicteric, conjunctiva are normal. ENT: nares patent, oropharynx clear without exudates. Moderately dry mucous membranes. NECK: Normal range of motion, supple without lymphadenopathy LUNGS: Breath sounds clear to auscultation bilaterally and equal. No wheezes rales or rhonchi. HEART: Regular rate and rhythm without murmurs ABDOMEN: Soft, nontender, normoactive bowel sounds. No guarding, no rebound. No masses appreciated. EXTREMITIES: Normal range of motion, no pitting or edema. No cyanosis. Back: No midline spinal tenderness, step-offs or deformities NEUROLOGICAL: Face symmetric. Tongue protrudes midline. Extraocular motions intact. Pupils are 2 mm and equally reactive. Normal speech, normal gait. 5 out of 5 strength in both the distal and proximal upper and lower extremities bilaterally. Sensation is grossly intact throughout. Finger to nose testing normal. Pronator drift normal. PSYCH: Normal mood, normal affect. SKIN: Warm, Dry, normal turgor, no rashes or lesions noted. Course - Re-evaluation Re-evalutation: 07/02/17 22:47 Patient presents with diffuse body pain in the setting of a lupus flare. She has required transfusions repeatedly in the past some of the similar circumstances. She is otherwise nontoxic in appearance, vitals within normal limits. I have ordered repeat labs to evaluate for renal function and her degree of anemia. Will also provide pain control and then reassess. I have reemphasized that this patient the incredibly significant importance of her follow-up with both rheumatology as well as hematology regarding her chronic illness as we are not able to provide appropriate continuity of care here in the emergency department. 07/03/17 01:03 Labs do show chronic kidney disease although improved from her most recent visit as well as chronic anemia again improved from her most recent visit. Patient's pain has been controlled. Vitals remain within normal limits with exception of hypertension which is her baseline. I have again reemphasized the importance of follow-up for her chronic lupus and her associated palpitations of anemia and chronic kidney disease. I provided her referral to nephrology, hematology, and a primary care physician. I have also informed she will need to follow up with rheumatology. At this time will discharge with return precautions and follow-up recommendations. Verbal discharge instructions given a the bedside and opportunity for questions given. Medication warnings reviewed. Patient is in agreement with this plan and has verbalized understanding of return precautions and the need for primary care follow-up in the next 24-72 hours. - Vital Signs Vital signs: Temp Pulse Resp BP Pulse Ox 97.5 F 78 18 165/104 H 98 07/03/17 00:10 07/03/17 01:23 07/03/17 01:23 07/03/17 01:23 07/03/17 01:23 - Laboratory Result Diagrams: 07/03/17 00:04 07/02/17 23:00 Laboratory results interpreted by me: 07/02/17 07/03/17 23:00 00:04 WBC 12.4 H Hgb 8.2 L Hct 27.7 L MCV 63 L D MCH 18.9 L MCHC 29.8 L RDW 27.2 H Plt Count 488 H Monocytes % (Manual) 1 L Abs Neuts (Manual) 9.7 H Chloride 108 H BUN 21 H Creatinine 1.74 H Est GFR ( Amer) 42 L Est GFR (Non-Af Amer) 34 L Discharge - Discharge Clinical Impression: Lupus nephritis, Chronic anemia, Total body pain Condition: Good Disposition: HOME, SELF-CARE Additional Instructions: Please follow-up with nephrology, hematology, rheumatology, and a primary doctor as soon as possible. You do have chronic kidney disease and chronic anemia as a result of your lupus. Following up for treatment of this illness is critical to maintaining an improved quality of life and avoiding applications of untreated lupus. Please contact the enclosed referrals as soon as possible. Return if you develop fever, persistent vomiting, confusion, shortness of breath, or any other symptoms that are worrisome to you. Forms: Return to Work Referrals: Gladis PRICE MD [ACTIVE STAFF] - Follow up in 3-5 days ALVINA JOHNSON MD [ACTIVE STAFF] - Follow up in 3-5 days RAVEN CHUN MD [ACTIVE STAFF] - Follow up in 3-5 days
[2017-07-02] MEDS ORDERED: HYDROMORPHONE HCL INJ/PF 2 MG/ML AMPULE IV ONE (22:48)
[2017-07-02] MEDS ORDERED: ONDANSETRON HCL INJ/PF 4 MG/2 ML SDV IV ONE (22:48)
[2017-07-02 23:18] LABS: ANION GAP 11 (5-19); BLOOD UREA NITROGEN 21 mg/dL (7-20); CARBON DIOXIDE 22 mmol/L (22-30); CHLORIDE 108 mmol/L (98-107); GLUCOSE 97 mg/dL (75-110); POTASSIUM 4.5 mmol/L (3.6-5.0); SODIUM 141.1 mmol/L (137-145)
[2017-07-03 00:25] LABS: HEMATOCRIT 27.7 % (36.0-47.0); HEMOGLOBIN 8.2 g/dL (12.0-15.5); MEAN CORPUSCULAR HEMOGLOBIN 18.9 pg (27.0-33.4); MEAN CORPUSCULAR HGB CONC 29.8 g/dL (32.0-36.0); PLATELET COUNT 488 10^3/uL (150-450); RED BLOOD COUNT 4.37 10^6/uL (3.72-5.28); RED CELL DISTRIBUTION WIDTH 27.2 % (11.5-14.0); WHITE BLOOD COUNT 12.4 10^3/uL (4.0-10.5)
[2017-07-03 00:31] LABS: MEAN CORPUSCULAR VOLUME 63 fl (80-97)
[2017-07-03 00:45] LABS: ABSOLUTE LYMPHOCYTES# (MANUAL) 2.6 10^3/uL (0.5-4.7); ABSOLUTE MONOCYTES # (MANUAL) 0.1 10^3/uL (0.1-1.4); ABSOLUTE NEUTROPHILS# (MANUAL) 9.7 10^3/uL (1.7-8.2); BASOPHILS % (MANUAL) 0 % (0-2); EOSINOPHILS % (MANUAL) 0 % (0-6); LYMPHOCYTES % (MANUAL) 21 % (13-45); MONOCYTES % (MANUAL) 1 % (3-13); SEGMENTED NEUTROPHILS % (MAN) 78 % (42-78); TOTAL CELLS COUNTED 100
[2017-07-03 00:47] LABS: ANISOCYTOSIS 3+; HYPOCHROMASIA 3+; OVALOCYTES 1+; PLATELET COMMENT INCREASED; PLATELET GIANT PRESENT; PLATELET LARGE PRESENT; POIKILOCYTOSIS 1+; POLYCHROMASIA SLIGHT; TEAR DROP CELLS SLIGHT
[2017-07-03] MEDS ORDERED: HYDROMORPHONE HCL INJ/PF 2 MG/ML AMPULE IV ONE (00:53)
[2017-07-03 01:23] VITALS: BP 165/104
[2017-07-03 12:13] LABS: PATH REVIEW PATHOLOGIST REVIEWED
== END 2017-07-03 01:23 | disposition home or self-care (01) ==
LOC: ER 21:18
DX: M32.14 Glomerular disease in systemic lupus erythematosus (principal); D64.9 Anemia, unspecified; I12.9 Hypertensive chronic kidney disease with stage 1 through stage 4 chronic kidney disease, or unspecified chronic kidney disease; N18.9 Chronic kidney disease, unspecified; Z88.6 Allergy status to analgesic agent
CPT/HCPCS: 96376; 99283; 96374; 96375; 36415; 85025; 80048; J1170 ×2; J2405

== ENCOUNTER 2017-09-05 12:32 | Emergency (ER) | payer OTHER, MEDICAID ==
[2017-09-05 12:44] VITALS: BP 153/113
[2017-09-05] MEDS ORDERED: KETOROLAC TROMETHAMINE INJ/PF 30 MG/1 ML SDV IM ONE (13:12)
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
== END 2017-09-05 13:33 | disposition home or self-care (01) ==
LOC: ER 12:32
DX: M54.5 Low back pain (principal); R51 Headache; V89.2XXA Person injured in unspecified motor-vehicle accident, traffic, initial encounter; I10 Essential (primary) hypertension
CPT/HCPCS: 99283; 96372; J1885

== ENCOUNTER 2017-12-13 21:27 | Emergency (ER) | payer MEDICAID, OTHER ==
[2017-12-13] MEDS ORDERED: KETOROLAC TROMETHAMINE 60 MG/2 ML SDV IM ONE (23:48)
--- NOTE | 2017-12-14 00:45 | ER Document Report ---
ED General Pain - General Chief Complaint: Pain All Over Stated Complaint: PAIN ALL OVER Time Seen by Provider: 12/13/17 23:47 Notes: Patient is a 32 year old female with a past medical history of lupus with associated chronic pain who presents with an exacerbation of her chronic pain. She describes this as a diffuse, aching, cramping pain to the entirety of her body most intense in her low back. She has tried [id number] pain medications without any relief. Nothing worsens her symptoms. She has not contacted her general doctor regarding these concerns. She denies any associated fever or constitutional symptoms. TRAVEL OUTSIDE OF THE [place] IN LAST 30 DAYS: No - Related Data Allergies/Adverse Reactions: aspirin [Aspirin] Allergy (Verified 06/06/17 14:27) Renal failure ibuprofen Allergy (Verified 06/06/17 14:27) Past Medical History - General Information source: Patient - Social History Smoking Status: Never Smoker Chew tobacco use (# tins/day): No Frequency of alcohol use: None Drug Abuse: None Lives with: Family Family History: Reviewed & Not Pertinent, CAD, Hyperlipidemia, Hypertension Patient has suicidal ideation: No Patient has homicidal ideation: No - Past Medical History Cardiac Medical History: Reports: Hx Congestive Heart Failure, Hx Hypertension - ON MEDICATION Denies: Hx Coronary Artery Disease, Hx Heart Attack Pulmonary Medical History: Denies: Hx Asthma, Hx Bronchitis, Hx COPD, Hx Pneumonia Neurological Medical History: Reports: Hx Seizures - BEGINNING OF 2016. Denies : Hx Cerebrovascular Accident Renal/ Medical History: Reports: Hx Ovarian Cysts. Denies: Hx Peritoneal Dialysis Musculoskeletal Medical History: Reports Hx Arthritis - RA Past Surgical History: Reports: Hx Gynecologic Surgery - Colposcopy, Hx Oral Surgery - wisdom - Immunizations Immunizations up to date: Yes Hx Diphtheria, Pertussis, Tetanus Vaccination: Yes Review of Systems - Review of Systems Notes: Constitutional: Negative for fever. HENT: Negative for sore throat. Eyes: Negative for visual changes. Cardiovascular: Negative for chest pain. Respiratory: Negative for shortness of breath. Gastrointestinal: Negative for abdominal pain, vomiting or diarrhea. Genitourinary: Negative for dysuria. Musculoskeletal: Positive for diffuse body pain Skin: Negative for rash. Neurological: Negative for headaches, weakness or numbness. 10 point ROS negative except as marked above and in HPI. Physical Exam - Vital signs Vitals: Temp Pulse Resp BP Pulse Ox 98.8 F 58 L 18 119/94 H 100 12/13/17 21:41 12/13/17 21:41 12/13/17 21:41 12/13/17 21:41 12/13/17 21:41 Interpretation: Normal Notes: PHYSICAL EXAMINATION: GENERAL: Well-appearing, well-nourished and in no acute distress. HEAD: Atraumatic, normocephalic. EYES: Pupils equal round and reactive to light, extraocular movements intact, sclera anicteric, conjunctiva are normal. ENT: nares patent, oropharynx clear without exudates. Moist mucous membranes. NECK: Normal range of motion, supple without lymphadenopathy LUNGS: Breath sounds clear to auscultation bilaterally and equal. No wheezes rales or rhonchi. HEART: Regular rate and rhythm without murmurs ABDOMEN: Soft, nontender, normoactive bowel sounds. No guarding, no rebound. No masses appreciated. EXTREMITIES: Normal range of motion, no pitting or edema. No cyanosis. NEUROLOGICAL: No focal neurological deficits. Moves all extremities spontaneously and on command. PSYCH: Normal mood, normal affect. SKIN: Warm, Dry, normal turgor, no rashes or lesions noted. Course - Re-evaluation Re-evalutation: 12/14/17 00:44 Patient presents complaining of generalized body pain typical when she has an exacerbation of her underlying lupus. She states that she has presented under similar circumstances in the past, received Toradol and then been discharged. She is declining any lab work or further evaluation stating that this is typical for her chronic pain. She has had complete resolution of her discomfort after receiving IM Toradol. Physical examination is otherwise unremarkable. She denies any additional acute complaints to suggest any alternative life-threatening pathology. At this time will discharge with return precautions and follow-up recommendations. Verbal discharge instructions given a the bedside and opportunity for questions given. Medication warnings reviewed. Patient is in agreement with this plan and has verbalized understanding of return precautions and the need for primary care follow-up in the next 24-72 hours. - Vital Signs Vital signs: Temp Pulse Resp BP Pulse Ox 97.4 F 64 16 117/89 H 98 12/14/17 00:47 12/14/17 00:47 12/14/17 00:47 12/14/17 00:47 12/14/17 00:47 Discharge - Discharge Clinical Impression: Total body pain Lupus Qualifiers: Lupus erythematosus form: unspecified Qualified Code(s): L93.0 - Discoid lupus erythematosus Condition: Good Disposition: HOME, SELF-CARE Additional Instructions: Please return to the emergency room immediately if you experience any concerning symptoms including high fevers, severe headache, chest pain, difficulty breathing, abdominal pain, slurred speech, numbness or weakness in your arms or legs, or any other symptom that concerns you.
[2017-12-14 00:49] VITALS: BP 117/89
== END 2017-12-14 00:49 | disposition home or self-care (01) ==
LOC: ER 21:27
DX: L93.0 Discoid lupus erythematosus (principal); G89.29 Other chronic pain; M54.5 Low back pain; I10 Essential (primary) hypertension; Z88.6 Allergy status to analgesic agent
CPT/HCPCS: 99283; 96372; J1885

== ENCOUNTER 2018-01-06 12:17 | Emergency (ER) | payer MEDICAID ==
[2018-01-06 12:26] VITALS: BP 134/98
[2018-01-06] MEDS ORDERED: HYDROMORPHONE HCL INJ/PF 2 MG/ML AMPULE IM ONE (12:35)
[2018-01-06] MEDS ORDERED: ONDANSETRON 4 MG TAB.RAPDIS PO ONE (12:35)
--- NOTE | 2018-01-06 12:36 | ER Document Report ---
ED Medical Screen (RME) - General Chief Complaint: Pain All Over Stated Complaint: PAIN ALL OVER Time Seen by Provider: 01/06/18 12:26 Mode of Arrival: Ambulatory Information source: Patient Notes: 32-year-old female with a history of lupus (CellCept and prednisone), chronic kidney disease, CHF who presents to the emergency room with generalized pain which is consistent with an acute exam sedation of her chronic pain. Patient denies any fever, chills, chest pain or shortness of breath. She gets exacerbations of pain which is muscular in nature and all over. She has been told that she should be careful with NSAIDs because she does have renal insufficiency and she is followed closely by both the hand potter and a kidney specialist from [facility]. TRAVEL OUTSIDE OF THE [place] IN LAST 30 DAYS: No - HPI Onset: Yesterday Onset/Duration: Gradual Quality of pain: Dull Severity: Moderate Pain Level: 2 Associated Symptoms: Body/muscle aches. denies: Chest pain, Cough (productive) , Cough (nonproductive), Shortness of breath Exacerbated by: Movement Relieved by: Remaining still Similar symptoms previously: Yes Recently seen / treated by doctor: Yes - Related Data Smoking: Non-smoker Frequency of alcohol use: None Drug Abuse: None Allergies/Adverse Reactions: acetaminophen [From Vicodin] Allergy (Verified 01/06/18 12:22) VOMITING aspirin [Aspirin] Allergy (Verified 06/06/17 14:27) Renal failure hydrocodone [From Vicodin] Allergy (Verified 01/06/18 12:22) VOMITING ibuprofen Allergy (Verified 06/06/17 14:27) Past Medical History - General Information source: Patient - Social History Cigarette use (# per day): No Chew tobacco use (# tins/day): No Frequency of alcohol use: None Drug Abuse: None Lives with: Family Family history: None - Past Medical History Cardiac Medical History: Reports: Hx Congestive Heart Failure, Hx Hypertension - ON MEDICATION Denies: Hx Coronary Artery Disease, Hx Heart Attack Pulmonary Medical History: Denies: Hx Asthma, Hx Bronchitis, Hx COPD, Hx Pneumonia Neurological Medical History: Reports: Hx Seizures - BEGINNING OF 2016. Denies : Hx Cerebrovascular Accident Renal/ Medical History: Reports: Hx Ovarian Cysts. Denies: Hx Peritoneal Dialysis Musculoskeltal Medical History: Reports Hx Arthritis - RA Past Surgical History: Reports: Hx Gynecologic Surgery - Colposcopy, Hx Oral Surgery - wisdom - Immunizations Immunizations up to date: Yes Hx Diphtheria, Pertussis, Tetanus Vaccination: Yes History of Influenza Vaccine for 02/2017 - 07/2017 Season: Yes Influenza Administration Date for 02/2017 - 07/2017 Season: 02/03/17 Review of Systems - Review of Systems Constitutional: denies: Chills, Fever EENT: No symptoms reported Cardiovascular: denies: Chest pain, Palpitations, Heart racing, Orthopnea Respiratory: denies: Cough, Short of breath, Wheezing Gastrointestinal: No symptoms reported Genitourinary: No symptoms reported Female Genitourinary: No symptoms reported Musculoskeletal: See HPI Skin: No symptoms reported Hematologic/Lymphatic: No symptoms reported Neurological/Psychological: No symptoms reported Physical Exam - Vital signs Vitals: Temp Pulse Resp BP Pulse Ox 98.0 F 75 18 134/98 H 100 01/06/18 12:24 01/06/18 12:24 01/06/18 12:24 01/06/18 12:24 01/06/18 12:24 Notes: Physical exam: GENERAL: 32-year-old female, alert and oriented 3, no acute distress HEAD: Atraumatic, normocephalic. EYES: Pupils equal round and reactive to light, extraocular movements intact, sclera anicteric, conjunctiva are normal. ENT: TMs normal, nares patent, oropharynx clear without exudates. Moist mucous membranes. NECK: Normal range of motion, supple without obvious mass or JVD. LUNGS: Breath sounds clear to auscultation bilaterally and equal. No wheezes rales or rhonchi. HEART: Regular rate and rhythm without murmurs, rubs or gallops. ABDOMEN: Soft, normoactive bowel sounds. No tenderness to palpation. No guarding, no rebound. No masses appreciated. EXTREMITIES: Normal range of motion, no pitting or edema. No clubbing or cyanosis. NEUROLOGICAL: Cranial nerves II through XII grossly intact. Normal speech, moving all extremities. PSYCH: Normal mood, normal affect. SKIN: Warm, Dry, normal turgor, no rashes or lesions noted. Course - Re-evaluation Re-evalutation: 01/06/18 13:18 Note: Patient looks quite good on exam. She does have an exacerbation of chronic pain. On review of previous encounters here in the emergency room, she has responded to Toradol/NSAIDs. My concern is that she has since been told that she has some renal insufficiency and has been told to avoid NSAIDs. Given this, I have opted to treat her with a short course of narcotics at this time. I have spoken to her about the problems with narcotics and she actually does have an appointment set up with a pain specialist. 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 - Vital Signs Vital signs: Temp Pulse Resp BP Pulse Ox 98.0 F 75 18 134/98 H 100 01/06/18 12:24 01/06/18 12:24 01/06/18 12:24 01/06/18 12:24 01/06/18 12:24 Doctor's Discharge - Discharge Clinical Impression: Acute exacerbation of chronic pain Condition: Stable Disposition: HOME, SELF-CARE Additional Instructions: Continue current medicines. Take the pain medicine as needed. Because of the kidneys, avoid ibuprofen like medicines (NSAIDs). Follow-up with your specialist/doctors as planned. The pain medicine you're taking prescribed as a narcotic. There are several important things you should know about this medicine: 1. This medicine contains Tylenol: It is important that you do not take Tylenol (or acetaminophen) while on this medicine. Tylenol is metabolized by the liver and taking too much Tylenol (acetaminophen) can lay to liver damage and even liver failure. 2. Taking narcotics for too long can lead to physical and mental dependence. Take this medicine only if really needed and in the lowest quantity to achieve pain relief. 3. Do not drink alcohol while on this medicine. Alcohol interacts with narcotics and the combination can be dangerous. 4. Do not drive or operate machinery while on this medicine. 5. Narcotics do cause constipation, so drink plenty of fluids and daily stool softeners. Prescriptions: Oxycodone HCl/Acetaminophen [Percocet 5-325 mg Tablet] 1 tab PO ASDIR PRN #25 tab PRN Reason:
== END 2018-01-06 13:18 | disposition home or self-care (01) ==
LOC: ER 12:17
DX: G89.29 Other chronic pain (principal); M32.9 Systemic lupus erythematosus, unspecified; I13.0 Hypertensive heart and chronic kidney disease with heart failure and stage 1 through stage 4 chronic kidney disease, or unspecified chronic kidney disease; N18.9 Chronic kidney disease, unspecified; I50.9 Heart failure, unspecified
CPT/HCPCS: 99283; 96372; S0119; J1170

== ENCOUNTER 2018-01-28 16:56 | Emergency (ER) | payer MEDICAID ==
[2018-01-28 17:25] VITALS: BP 152/96
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
[2018-01-28] MEDS ORDERED: MORPHINE SULFATE 10 MG/ML INJ IM ONE (19:06)
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
== END 2018-01-28 20:39 | disposition home or self-care (01) ==
LOC: ER 16:56
DX: R52 Pain, unspecified (principal); Z79.899 Other long term (current) drug therapy; Z79.52 Long term (current) use of systemic steroids; I10 Essential (primary) hypertension; Z88.6 Allergy status to analgesic agent; Z88.5 Allergy status to narcotic agent
CPT/HCPCS: 99283; 96372; J2270

== ENCOUNTER → 2018-02-12 | Outpatient (CLI) | payer MEDICAID ==
[2018-02-12 16:44] LABS: ANION GAP 10 (5-19); BLOOD UREA NITROGEN 23 mg/dL (7-20); CALCIUM 9.2 mg/dL (8.4-10.2); CARBON DIOXIDE 19 mmol/L (22-30); CHLORIDE 113 mmol/L (98-107); GLUCOSE 90 mg/dL (75-110); POTASSIUM 4.1 mmol/L (3.6-5.0); SODIUM 141.5 mmol/L (137-145)
== END ==
LOC: LAB 16:04
PROVIDERS: ATTEND Internal Medicine Nephrology
DX: N18.4 Chronic kidney disease, stage 4 (severe) (principal)
CPT/HCPCS: 36415; 80048

== ENCOUNTER 2018-02-17 17:05 | Emergency (ER) | payer MEDICAID ==
--- NOTE | 2018-02-17 17:46 | ER Document Report ---
ED Medical Screen (RME) - General Chief Complaint: Pain All Over Stated Complaint: BODY ACHES Time Seen by Provider: 02/17/18 17:30 Mode of Arrival: Ambulatory Information source: Patient Notes: 32-year-old female with a history of lupus, CHF, and renal failure presents emergency department with come complaints of diffuse pain. Patient states that she has a lupus flareup about once a month. Patient denies any fever, chills, nausea, vomiting, diarrhea, constipation, chest pain, shortness of breath, abdominal pain. Patient states that she has a new decal decorator appointment at the end of the month. She is hoping that the decal decorator will start her on her lupus medications and refer her to pain management. I have greeted and performed a rapid initial assessment of this patient. A comprehensive ED assessment and evaluation of the patient, analysis of test results and completion of the medical decision making process will be conducted by additional ED providers. PHYSICAL EXAMINATION: GENERAL: Well-appearing, well-nourished and in no acute distress. HEAD: Atraumatic, normocephalic. EYES: Pupils equal round extraocular movements intact, conjunctiva are normal. ENT: Nares patent NECK: Normal range of motion LUNGS: No respiratory distress Musculoskeletal: Normal range of motion NEUROLOGICAL: Normal speech, normal gait. PSYCH: Normal mood, normal affect. SKIN: Warm, Dry, normal turgor, no rashes or lesions noted. TRAVEL OUTSIDE OF THE [place] IN LAST 30 DAYS: No - Related Data Allergies/Adverse Reactions: acetaminophen [From Vicodin] Allergy (Verified 01/06/18 12:22) VOMITING aspirin [Aspirin] Allergy (Verified 06/06/17 14:27) Renal failure hydrocodone [From Vicodin] Allergy (Verified 01/06/18 12:22) VOMITING ibuprofen Allergy (Verified 06/06/17 14:27) Past Medical History - Social History Chew tobacco use (# tins/day): No Frequency of alcohol use: None Drug Abuse: None Family history: None - Past Medical History Cardiac Medical History: Reports: Hx Congestive Heart Failure, Hx Hypertension - ON MEDICATION Denies: Hx Coronary Artery Disease, Hx Heart Attack Pulmonary Medical History: Denies: Hx Asthma, Hx Bronchitis, Hx COPD, Hx Pneumonia Neurological Medical History: Reports: Hx Seizures - BEGINNING OF 2016. Denies : Hx Cerebrovascular Accident Renal/ Medical History: Reports: Hx Ovarian Cysts. Denies: Hx Peritoneal Dialysis Musculoskeltal Medical History: Reports Hx Arthritis - RA Past Surgical History: Reports: Hx Gynecologic Surgery - Colposcopy, Hx Oral Surgery - wisdom - Immunizations Immunizations up to date: Yes Hx Diphtheria, Pertussis, Tetanus Vaccination: Yes History of Influenza Vaccine for 02/2017 - 07/2017 Season: Yes Influenza Administration Date for 02/2017 - 07/2017 Season: 02/03/17 Physical Exam - Vital signs Vitals: Temp Pulse Resp BP Pulse Ox 97.6 F 71 18 126/105 H 99 02/17/18 17:18 02/17/18 17:18 02/17/18 17:18 02/17/18 17:18 02/17/18 17:18 Course - Vital Signs Vital signs: Temp Pulse Resp BP Pulse Ox 97.6 F 71 18 126/105 H 99 02/17/18 17:18 02/17/18 17:18 02/17/18 17:18 02/17/18 17:18 02/17/18 17:18 Doctor's Discharge - Discharge Referrals: GABRIEL TATE MD [Primary Care Provider] - Follow up as needed
[2018-02-17 18:01] LABS: ABSOLUTE BASOPHILS # (AUTO) 0.1 10^3/uL (0.0-0.2); ABSOLUTE EOSINOPHILS # (AUTO) 0.2 10^3/uL (0.0-0.6); ABSOLUTE LYMPHOCYTES (AUTO) 2.4 10^3/uL (0.5-4.7); ABSOLUTE MONOCYTES (AUTO) 0.3 10^3/uL (0.1-1.4); ABSOLUTE NEUT (AUTO) 2.8 10^3/uL (1.7-8.2); EOSINOPHILS % (AUTO) 3.3 % (0-6); HEMATOCRIT 37.6 % (36.0-47.0); HEMOGLOBIN 12.1 g/dL (12.0-15.5); LYMPHOCYTES % (AUTO) 41.4 % (13-45); MEAN CORPUSCULAR HEMOGLOBIN 26.1 pg (27.0-33.4); MEAN CORPUSCULAR HGB CONC 32.1 g/dL (32.0-36.0); MEAN CORPUSCULAR VOLUME 81 fl (80-97); MONOCYTES % (AUTO) 4.7 % (3-13); PLATELET COUNT 308 10^3/uL (150-450); RED BLOOD COUNT 4.62 10^6/uL (3.72-5.28); RED CELL DISTRIBUTION WIDTH 18.5 % (11.5-14.0); SEGMENTED NEUTROPHILS % (AUTO) 48.6 % (42-78); TOTAL CELLS COUNTED % (AUTO) 100 %; WHITE BLOOD COUNT 5.7 10^3/uL (4.0-10.5)
[2018-02-17 18:07] LABS: APPEARANCE,URINE CLEAR; BILIRUBIN,URINE NEGATIVE (NEGATIVE); COLOR,URINE YELLOW; GLUCOSE, URINE NEGATIVE (NEGATIVE); KETONES,URINE NEGATIVE (NEGATIVE); LEUKOCYTE ESTERASE,URINE NEGATIVE (NEGATIVE); NITRITE,URINE NEGATIVE (NEGATIVE); PROTEIN,URINE >=500 mg/dL (NEGATIVE); URINE SPECIFIC GRAVITY 1.013; UROBILINOGEN,URINE NEGATIVE mg/dL (<2.0)
[2018-02-17 18:25] LABS: ALANINE AMINOTRANSFERASE 19 U/L (9-52); ALBUMIN 3.4 g/dL (3.5-5.0); ALKALINE PHOSPHATASE 81 U/L (38-126); ANION GAP 8 (5-19); ASPARTATE AMINO TRANSFERASE 18 U/L (14-36); BILIRUBIN,DIRECT 0.1 mg/dL (0.0-0.4); BILIRUBIN,TOTAL 0.2 mg/dL (0.2-1.3); BLOOD UREA NITROGEN 19 mg/dL (7-20); CALCIUM 9.1 mg/dL (8.4-10.2); CARBON DIOXIDE 21 mmol/L (22-30); CHLORIDE 112 mmol/L (98-107); GLUCOSE 93 mg/dL (75-110); POTASSIUM 4.6 mmol/L (3.6-5.0); SODIUM 141.4 mmol/L (137-145); TOTAL PROTEIN 6.9 g/dL (6.3-8.2)
[2018-02-17] MEDS ORDERED: MORPHINE SULFATE 10 MG/ML INJ IM ONE (18:59)
--- NOTE | 2018-02-17 19:01 | ER Document Report ---
ED General Pain - General Chief Complaint: Pain All Over Stated Complaint: BODY ACHES Time Seen by Provider: 02/17/18 17:30 Mode of Arrival: Ambulatory Information source: Patient Notes: 32-year-old female presented to ED for complaint a history of lupus CHF and renal failure. 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 She states she has chronic pain and is frequently seen for pain management in the emergency room. She denies any nausea or vomiting or any symptoms except for pain. Patient is alert and oriented respirations regular and unlabored speaking in full sentences walking with a even steady gait. Patient is in no acute distress. TRAVEL OUTSIDE OF THE [place] IN LAST 30 DAYS: No - HPI Onset: Other - Chronic Onset/Duration: Intermittent Quality of pain: Achy, Sharp Severity: Moderate Pain Level: 3 Context: Chronic problem Typical of prior episodes of painful crisis: Yes Associated symptoms: None Exacerbated by: Movement, Walking Relieved by: Denies Similar symptoms previously: Yes Recently seen / treated by doctor: Yes - Related Data Allergies/Adverse Reactions: acetaminophen [From Vicodin] Allergy (Verified 01/06/18 12:22) VOMITING aspirin [Aspirin] Allergy (Verified 06/06/17 14:27) Renal failure hydrocodone [From Vicodin] Allergy (Verified 01/06/18 12:22) VOMITING ibuprofen Allergy (Verified 06/06/17 14:27) Past Medical History - General Information source: Patient - Social History Smoking Status: Never Smoker Cigarette use (# per day): No Chew tobacco use (# tins/day): No Smoking Education Provided: No Frequency of alcohol use: None Drug Abuse: None Lives with: Family Family History: Reviewed & Not Pertinent, CAD, Hyperlipidemia, Hypertension Patient has suicidal ideation: No Patient has homicidal ideation: No - Past Medical History Cardiac Medical History: Reports: Hx Congestive Heart Failure, Hx Hypertension - ON MEDICATION Pulmonary Medical History: Reports: None EENT Medical History: Reports: None Neurological Medical History: Reports: Hx Seizures - BEGINNING OF 2016 Renal/ Medical History: Reports: Hx Ovarian Cysts, Other - lupus Malignancy Medical History: Reports: None GI Medical History: Reports: None Musculoskeletal Medical History: Reports Hx Arthritis - RA, Reports Other - lupus Skin Medical History: Reports None Psychiatric Medical History: Reports: None Traumatic Medical History: Reports: None Infectious Medical History: Reports: None Past Surgical History: Reports: Hx Gynecologic Surgery - Colposcopy, Hx Oral Surgery - wisdom - Immunizations Immunizations up to date: Yes Hx Diphtheria, Pertussis, Tetanus Vaccination: Yes Review of Systems - Review of Systems Constitutional: No symptoms reported EENT: No symptoms reported Cardiovascular: No symptoms reported Respiratory: No symptoms reported Gastrointestinal: No symptoms reported Genitourinary: No symptoms reported Female Genitourinary: No symptoms reported Musculoskeletal: Joint pain, Muscle pain, Muscle stiffness Skin: No symptoms reported Hematologic/Lymphatic: No symptoms reported Neurological/Psychological: No symptoms reported -: Yes All other systems reviewed and negative Physical Exam - Vital signs Vitals: Temp Pulse Resp BP Pulse Ox 97.6 F 71 18 126/105 H 99 02/17/18 17:18 02/17/18 17:18 02/17/18 17:18 02/17/18 17:18 02/17/18 17:18 Interpretation: Normal - General General appearance: Appears well, Alert In distress: None - HEENT Head: Normocephalic, Atraumatic Eyes: Normal Pupils: PERRL Ears: Normal External canal: Normal Tympanic membrane: Normal Sinus: Normal Nasal: Normal Mouth/Lips: Normal Mucous membranes: Normal Pharynx: Normal Neck: Normal - Respiratory Respiratory status: No respiratory distress Chest status: Nontender Breath sounds: Normal Chest palpation: Normal - Cardiovascular Rhythm: Regular Heart sounds: Normal auscultation Murmur: No - Abdominal Inspection: Normal Distension: No distension Bowel sounds: Normal Tenderness: Nontender Organomegaly: No organomegaly - Back Back: Normal, Nontender - Extremities General upper extremity: Normal inspection, Normal color, Normal ROM, Normal temperature General lower extremity: Normal inspection, Normal color, Normal ROM, Normal temperature, Normal weight bearing. No: Mildred's sign - Neurological Neuro grossly intact: Yes Cognition: Normal Orientation: AAOx4 Sameer Coma Scale Eye Opening: Spontaneous Sameer Coma Scale Verbal: Oriented Devils Elbow Coma Scale Motor: Obeys Commands Sameer Coma Scale Total: 15 Speech: Normal Cranial nerves: Normal Cerebellar coordination: Normal Motor strength normal: LUE, RUE, LLE, RLE Additional motor exam normals: Equal signal timer Babinski reflex: Normal (flexor plantar) Sensory: Normal Biceps - Reflex grade: 2 = Normal Triceps - Reflex grade: 2 = Normal Brachioradialis - Reflex grade: 2 = Normal Knee - Reflex grade: 2 = Normal Ankle - Reflex grade: 2 = Normal - Psychological Associated symptoms: Normal affect, Normal mood - Skin Skin Temperature: Warm Skin Moisture: Dry Skin Color: Normal Course - Re-evaluation Re-evalutation: 02/18/18 02:24 Patient was given 1 injection of morphine in the emergency room and instructed to follow-up with her primary doctor. She was instructed that she needed to get a primary doctor they would control her pain from her rheumatoid arthritis and lupus. Patient was discharged home to follow-up with primary doctor. - Vital Signs Vital signs: Temp Pulse Resp BP Pulse Ox 97.8 F 68 16 162/118 H 100 02/17/18 19:08 02/17/18 19:08 02/17/18 19:08 02/17/18 19:08 02/17/18 19:08 - Laboratory Result Diagrams: 02/17/18 17:52 02/17/18 17:52 Laboratory results interpreted by me: 02/17/18 02/17/18 02/17/18 17:52 17:52 17:52 MCH 26.1 L RDW 18.5 H Chloride 112 H Carbon Dioxide 21 L Creatinine 2.36 H Est GFR ( Amer) 29 L Est GFR (Non-Af Amer) 24 L Albumin 3.4 L Urine Protein >=500 H Urine Blood MODERATE H Discharge - Discharge Clinical Impression: Chronic pain Qualifiers: Chronic pain type: other chronic pain Qualified Code(s): G89.29 - Other chronic pain Condition: Stable Disposition: HOME, SELF-CARE Instructions: Family Physicians / Practices Additional Instructions: He was seen today for pain all over and state you have a flare for your lupus. We will give you a injection of pain medication while you are in the emergency room but I will not send you home with a narcotic prescription. You do need to follow-up with your primary care doctor or whoever is managing your care and have them write your narcotic prescriptions. I have given you a copy of your lab results for you to take with you to follow-up with your primary doctor. I have also given you a list of the local primary doctors if you need to find someone until you can get into your junior architect. Chronic Pain Control Stress, inactivity, and depression make pain more severe regardless of the cause of the pain. Stress and poor physical condition can cause pain such as headaches and backache. Relaxation: Rest in a quiet place with your eyes closed for 20 minutes twice daily. Concentrate on a pleasant image, or simply "feel" your breathing. Clear your mind. Stress management: Deal with your "stressors." Either take action, or eliminate the stressor from your life. Don't let things hang over you. Accept those things you can't change. Nutrition: Eat small, balanced meals -- don't skip, don't overeat. Meals should be high-carbohydrate, low-sugar, low-fat. Exercise: Exercise helps painful conditions and eases stress. Get 30 minutes of moderate exercise, five days a week. Do an activity that does not flare your pain. Precautions: Pain which continues to disrupt daily activities, or which changes in nature, requires a medical evaluation. Pain Clinic referral is available. We do not manage chronic pain in the Emergency Department. We will try to appropriately help you through an acute flare of your chronic painful condition , but for on-going chronic pain that does not improve, you will need to see your private doctor or roller painter. We do not provide repeated medication management of chronic painful conditions. If you wish, we can provide the name of local pain management physicians. FOLLOW-UP CARE: If you have been referred to a physician for follow-up care, call the physician s office for an appointment as you were instructed or within the next two days. If you experience worsening or a significant change in your symptoms, notify the physician immediately or return to the Emergency Department at any time for re-evaluation. Forms: Elevated Blood Pressure Referrals: GABRIEL TATE MD [NO LOCAL MD] - Follow up as needed
[2018-02-17 19:09] VITALS: BP 162/118
== END 2018-02-17 19:10 | disposition home or self-care (01) ==
LOC: ER 17:05
DX: G89.29 Other chronic pain (principal); M79.10 Myalgia, unspecified site; M06.9 Rheumatoid arthritis, unspecified; I50.9 Heart failure, unspecified; I11.0 Hypertensive heart disease with heart failure; Z88.6 Allergy status to analgesic agent
CPT/HCPCS: 99283; 96372; 36415; 85025; 81025; 80053; 81001; J2270

== ENCOUNTER 2018-03-15 19:01 | Emergency (ER) | payer MEDICAID ==
[2018-03-15 19:09] VITALS: BP 141/100
--- NOTE | 2018-03-15 19:33 | ER Document Report ---
ED Medical Screen (RME) - General Chief Complaint: Pain All Over Stated Complaint: BODY PAIN Time Seen by Provider: 03/15/18 19:27 Notes: 32-year-old female patient with a history of lupus complains of generalized pain. She states she feels it is a lupus flareup. She states it was occurring prior to a surgical procedure she had on at [facility], had an AICD/pacer inserted. She stated her doctors there said they could not treat her pain as an outpatient because they were heart doctors. She was discharged yesterday. She states she managed to get through the day without pain medication but is much worse today. She recently got a sugar presser named Dr. Nevarez who was trying to get her set up with a primary care provider and with a pain management doctor. She did fill prescriptions from Dr. Nevarez on 03/14/2018. I have greeted and performed a rapid initial assessment of this patient. A comprehensive ED assessment and evaluation of the patient, analysis of test results and completion of the medical decision making process will be conducted by additional ED providers. TRAVEL OUTSIDE OF THE [place] IN LAST 30 DAYS: No - Related Data Allergies/Adverse Reactions: acetaminophen [From Vicodin] Allergy (Verified 03/15/18 19:02) VOMITING aspirin [Aspirin] Allergy (Verified 03/15/18 19:02) Renal failure hydrocodone [From Vicodin] Allergy (Verified 03/15/18 19:02) VOMITING ibuprofen Allergy (Verified 03/15/18 19:02) Past Medical History - Social History Frequency of alcohol use: None Drug Abuse: None Family history: None - Past Medical History Cardiac Medical History: Reports: Hx Congestive Heart Failure, Hx Hypertension - ON MEDICATION Denies: Hx Coronary Artery Disease, Hx Heart Attack Pulmonary Medical History: Denies: Hx Asthma, Hx Bronchitis, Hx COPD, Hx Pneumonia Neurological Medical History: Reports: Hx Seizures - BEGINNING OF 2016. Denies : Hx Cerebrovascular Accident Renal/ Medical History: Reports: Hx Ovarian Cysts. Denies: Hx Peritoneal Dialysis Musculoskeltal Medical History: Reports Hx Arthritis - RA Past Surgical History: Reports: Hx Gynecologic Surgery - Colposcopy, Hx Oral Surgery - wisdom - Immunizations Immunizations up to date: Yes Hx Diphtheria, Pertussis, Tetanus Vaccination: Yes History of Influenza Vaccine for 02/2017 - 07/2017 Season: Yes Influenza Administration Date for 02/2017 - 07/2017 Season: 02/03/17 Physical Exam - Vital signs Vitals: Temp Pulse Resp BP Pulse Ox 98.6 F 77 18 141/100 H 100 03/15/18 19:05 03/15/18 19:05 03/15/18 19:05 03/15/18 19:05 03/15/18 19:05 Course - Vital Signs Vital signs: Temp Pulse Resp BP Pulse Ox 98.6 F 77 18 141/100 H 100 03/15/18 19:05 03/15/18 19:05 03/15/18 19:05 03/15/18 19:05 03/15/18 19:05
[2018-03-15 19:44] LABS: ABSOLUTE BASOPHILS # (AUTO) 0.1 10^3/uL (0.0-0.2); ABSOLUTE EOSINOPHILS # (AUTO) 0.2 10^3/uL (0.0-0.6); ABSOLUTE LYMPHOCYTES (AUTO) 2.3 10^3/uL (0.5-4.7); ABSOLUTE MONOCYTES (AUTO) 0.4 10^3/uL (0.1-1.4); ABSOLUTE NEUT (AUTO) 4.2 10^3/uL (1.7-8.2); BASOPHILS % (AUTO) 1.1 % (0-2); EOSINOPHILS % (AUTO) 2.5 % (0-6); HEMATOCRIT 38.7 % (36.0-47.0); HEMOGLOBIN 12.2 g/dL (12.0-15.5); MEAN CORPUSCULAR HEMOGLOBIN 25.6 pg (27.0-33.4); MEAN CORPUSCULAR HGB CONC 31.6 g/dL (32.0-36.0); MEAN CORPUSCULAR VOLUME 81 fl (80-97); PLATELET COUNT 291 10^3/uL (150-450); RED BLOOD COUNT 4.77 10^6/uL (3.72-5.28); RED CELL DISTRIBUTION WIDTH 18.3 % (11.5-14.0); SEGMENTED NEUTROPHILS % (AUTO) 58.4 % (42-78); TOTAL CELLS COUNTED % (AUTO) 100 %; WHITE BLOOD COUNT 7.2 10^3/uL (4.0-10.5)
[2018-03-15 19:56] LABS: ALANINE AMINOTRANSFERASE 6 U/L (9-52); ALBUMIN 3.7 g/dL (3.5-5.0); ALKALINE PHOSPHATASE 88 U/L (38-126); ANION GAP 11 (5-19); ASPARTATE AMINO TRANSFERASE 14 U/L (14-36); BILIRUBIN,DIRECT 0.2 mg/dL (0.0-0.4); BILIRUBIN,TOTAL 0.3 mg/dL (0.2-1.3); BLOOD UREA NITROGEN 29 mg/dL (7-20); C-REACTIVE PROTEIN 19.1 mg/L (<10.0); CALCIUM 9.3 mg/dL (8.4-10.2); CARBON DIOXIDE 24 mmol/L (22-30); CHLORIDE 107 mmol/L (98-107); GLUCOSE 96 mg/dL (75-110); POTASSIUM 4.5 mmol/L (3.6-5.0); SODIUM 142.3 mmol/L (137-145); TOTAL PROTEIN 7.4 g/dL (6.3-8.2)
[2018-03-15 20:20] LABS: ERYTHROCYTE SEDIMENTATION RATE 34 mm/hr (0-20)
== END 2018-03-15 20:25 | disposition left against medical advice (07) ==
LOC: ER 19:01
DX: M79.10 Myalgia, unspecified site (principal); I10 Essential (primary) hypertension; Z88.6 Allergy status to analgesic agent
CPT/HCPCS: 36415; 80053; 85025; 85652; 86140; 99281

== ENCOUNTER 2018-03-17 16:12 | Emergency (ER) | payer MEDICAID ==
[2018-03-17 16:35] VITALS: BP 129/92
--- NOTE | 2018-03-17 18:05 | ER Document Report ---
ED Medical Screen (RME) - General Chief Complaint: Pain All Over Stated Complaint: POST SURGERY PAIN Time Seen by Provider: 03/17/18 17:57 Notes: 32-year-old female patient with past medical history Lupus. She is complaining of generalized pain. She feels that it is due to lupus. Stated that it was occurring prior to a surgical procedure she had on , 03/13/2018 at [facility] , where she had an AICD/pacer inserted. She had stated that her doctors there so they could not treat her pain when she was discharged because they were her heart doctors. She was discharged on 03/14/2018. She recently began seeing a logistics loss prevention manager who was trying to get her set up with a primary care provider and with a pain management doctor. She did come to the emergency room on 03/15/2018 complaining of this generalized pain. She did have an ESR of 34, and a CRP of 19. She checked into the emergency room at 19:01, she was brought into the PIT triage room at 19:21 by the nurse and seen by me. She was documented to be in the main ED room at 20:00. At 20:25 her nurse learned from a supervisor personnel clerks that the patient had walked out. She was in the facility less than 1.5 hours. Today she is complaining about her pain, complaining about her care, complaining about my age. She is cursing loudly saying "f...ing" this and "f...ing" that. She repeatedly states that she has a heart condition. She repeatedly stated she was here for over three "f...ing"hours in pain and that is why she left. Reviewing the computer generated records shows that what she is claiming is not true. She will be assigned a room in the main ED to be evaluated for her chronic pain complaints. I have greeted and performed a rapid initial assessment of this patient. A comprehensive ED assessment and evaluation of the patient, analysis of test results and completion of the medical decision making process will be conducted by additional ED providers. TRAVEL OUTSIDE OF THE [place] IN LAST 30 DAYS: No - Related Data Allergies/Adverse Reactions: acetaminophen [From Vicodin] Allergy (Verified 03/15/18 19:02) VOMITING aspirin [Aspirin] Allergy (Verified 03/15/18 19:02) Renal failure hydrocodone [From Vicodin] Allergy (Verified 03/15/18 19:02) VOMITING ibuprofen Allergy (Verified 03/15/18 19:02) Past Medical History - Social History Frequency of alcohol use: None Drug Abuse: None Family history: None - Past Medical History Cardiac Medical History: Reports: Hx Congestive Heart Failure, Hx Hypertension - ON MEDICATION Denies: Hx Coronary Artery Disease, Hx Heart Attack - pacer/defib Pulmonary Medical History: Denies: Hx Asthma, Hx Bronchitis, Hx COPD, Hx Pneumonia Neurological Medical History: Reports: Hx Seizures - BEGINNING OF 2016. Denies : Hx Cerebrovascular Accident Renal/ Medical History: Reports: Hx Ovarian Cysts. Denies: Hx Peritoneal Dialysis Musculoskeltal Medical History: Reports Hx Arthritis - RA Past Surgical History: Reports: Hx Gynecologic Surgery - Colposcopy, Hx Oral Surgery - wisdom - Immunizations Immunizations up to date: Yes Hx Diphtheria, Pertussis, Tetanus Vaccination: Yes History of Influenza Vaccine for 02/2017 - 07/2017 Season: Yes Influenza Administration Date for 02/2017 - 07/2017 Season: 02/03/17 Physical Exam - Vital signs Vitals: Temp Pulse Resp BP Pulse Ox 98.9 F 78 20 129/92 H 100 03/17/18 16:34 03/17/18 16:34 03/17/18 16:34 03/17/18 16:34 03/17/18 16:34 Course - Vital Signs Vital signs: Temp Pulse Resp BP Pulse Ox 98.9 F 78 20 129/92 H 100 03/17/18 16:34 03/17/18 16:34 03/17/18 16:34 03/17/18 16:34 03/17/18 16:34
== END 2018-03-17 19:02 | disposition left against medical advice (07) ==
LOC: ER 16:12
DX: Z53.21 Procedure and treatment not carried out due to patient leaving prior to being seen by health care provider (principal); G89.18 Other acute postprocedural pain; G89.29 Other chronic pain; I50.9 Heart failure, unspecified; I10 Essential (primary) hypertension; Z79.899 Other long term (current) drug therapy
CPT/HCPCS: 99281

== ENCOUNTER 2018-05-25 05:32 | Emergency (ER) | payer MEDICAID ==
--- NOTE | 2018-05-25 05:40 | ER Document Report ---
ED Medical Screen (RME) - General Stated Complaint: SHORTNESS OF BREATH Time Seen by Provider: 05/25/18 05:37 Mode of Arrival: Medic Information source: Patient, Emergency Med Personnel, [facility] Records Notes: 32-year-old female with lupus, congestive heart failure (ejection fraction 27%) presents via EMS with complaint of shortness of breath while laying down. Patient states that just prior to arrival she could not sleep felt short of breath and had associated chest pain. Denies prior history of PE, DVT. I have greeted and performed a rapid initial assessment of this patient. A comprehensive ED assessment and evaluation of the patient, analysis of test results and completion of medical decision making process we will be contacted by additional ED providers. PHYSICAL EXAMINATION: Vital signs reviewed GENERAL: Well-appearing, well-nourished and in no acute distress. LUNGS: Diminished breath sounds Musculoskeletal: Normal range of motion NEUROLOGICAL: Normal speech, PSYCH: Normal mood, normal affect. SKIN: Warm, Dry, normal turgor, no rashes or lesions noted. TRAVEL OUTSIDE OF THE [place] IN LAST 30 DAYS: No - HPI Onset: Just prior to arrival Onset/Duration: Sudden Quality of pain: Other - Tightness Associated Symptoms: Chest pain, Shortness of breath Exacerbated by: Supine Relieved by: Denies Similar symptoms previously: Yes Recently seen / treated by doctor: Yes - Related Data Smoking: Non-smoker Frequency of alcohol use: None Drug Abuse: None Allergies/Adverse Reactions: acetaminophen [From Vicodin] Allergy (Verified 03/15/18 19:02) VOMITING aspirin [Aspirin] Allergy (Verified 03/15/18 19:02) Renal failure hydrocodone [From Vicodin] Allergy (Verified 03/15/18 19:02) VOMITING ibuprofen Allergy (Verified 03/15/18 19:02) Past Medical History - Social History Family history: None - Past Medical History Cardiac Medical History: Reports: Hx Congestive Heart Failure, Hx Hypertension - ON MEDICATION Denies: Hx Coronary Artery Disease, Hx Heart Attack - pacer/defib Pulmonary Medical History: Denies: Hx Asthma, Hx Bronchitis, Hx COPD, Hx Pneumonia Neurological Medical History: Reports: Hx Seizures - BEGINNING OF 2016. Denies: Hx Cerebrovascular Accident Renal/ Medical History: Reports: Hx Ovarian Cysts. Denies: Hx Peritoneal Marisa lysis Musculoskeltal Medical History: Reports Hx Arthritis - RA Past Surgical History: Reports: Hx Gynecologic Surgery - Colposcopy, Hx Oral Surgery - wisdom - Immunizations Immunizations up to date: Yes Hx Diphtheria, Pertussis, Tetanus Vaccination: Yes History of Influenza Vaccine for 02/2017 - 07/2017 Season: Yes Influenza Administration Date for 02/2017 - 07/2017 Season: 02/03/17
[2018-05-25 05:57] LABS: ABSOLUTE BASOPHILS # (AUTO) 0.1 10^3/uL (0.0-0.2); ABSOLUTE MONOCYTES (AUTO) 0.3 10^3/uL (0.1-1.4); RED CELL DISTRIBUTION WIDTH 14.5 % (11.5-14.0); TOTAL CELLS COUNTED % (AUTO) 100 %
[2018-05-25 06:11] LABS: ABSOLUTE EOSINOPHILS # (AUTO) 0.3 10^3/uL (0.0-0.6); ABSOLUTE LYMPHOCYTES (AUTO) 1.6 10^3/uL (0.5-4.7); ABSOLUTE NEUT (AUTO) 4.8 10^3/uL (1.7-8.2); BASOPHILS % (AUTO) 1.3 % (0-2); EOSINOPHILS % (AUTO) 3.6 % (0-6); HEMATOCRIT 32.1 % (36.0-47.0); HEMOGLOBIN 10.1 g/dL (12.0-15.5); LYMPHOCYTES % (AUTO) 22.9 % (13-45); MEAN CORPUSCULAR HEMOGLOBIN 24.8 pg (27.0-33.4); MEAN CORPUSCULAR HGB CONC 31.5 g/dL (32.0-36.0); MEAN CORPUSCULAR VOLUME 79 fl (80-97); MONOCYTES % (AUTO) 3.7 % (3-13); PLATELET COUNT 338 10^3/uL (150-450); RED BLOOD COUNT 4.08 10^6/uL (3.72-5.28); SEGMENTED NEUTROPHILS % (AUTO) 68.5 % (42-78)
[2018-05-25 06:18] LABS: ALANINE AMINOTRANSFERASE 22 U/L (9-52); ALBUMIN 3.4 g/dL (3.5-5.0); ALKALINE PHOSPHATASE 79 U/L (38-126); ANION GAP 5 (5-19); ASPARTATE AMINO TRANSFERASE 22 U/L (14-36); BILIRUBIN,DIRECT 0.2 mg/dL (0.0-0.4); BILIRUBIN,TOTAL 0.3 mg/dL (0.2-1.3); BLOOD UREA NITROGEN 29 mg/dL (7-20); CALCIUM 8.5 mg/dL (8.4-10.2); CARBON DIOXIDE 24 mmol/L (22-30); CHLORIDE 112 mmol/L (98-107); CREATINE KINASE 67 U/L (30-135); GLUCOSE 99 mg/dL (75-110); POTASSIUM 4.7 mmol/L (3.6-5.0); SODIUM 140.5 mmol/L (137-145); TOTAL PROTEIN 6.7 g/dL (6.3-8.2)
--- NOTE | 2018-05-25 06:21 | ER Document Report ---
ED General - General Stated Complaint: SHORTNESS OF BREATH Time Seen by Provider: 05/25/18 05:37 Mode of Arrival: Medic Information source: Patient Notes: 32-year-old female with a history of lupus, renal failure, congestive heart failure presents the emergency department with complaints of shortness of breath that started around 11 PM when she laid down for bed. Patient states that her heart began racing and she had to sit up in order to breathe. She states that the shortness of breath is been constant. She denies any alleviating factors. She denies any nausea, vomiting, diaphoresis. She does note to have chest pain with inspiration. She describes the pain as a sharp and stabbing since patient across her entire chest. Patient follows up with Dr. Lay at [facility]. She denies any recent travel, recent surgery, calf pain, leg swelling, history of DVT or PE. She does have hypertension but denies any coronary artery disease, hyperlipidemia, diabetes, family history of coronary artery disease, smoking. TRAVEL OUTSIDE OF THE [place] IN LAST 30 DAYS: No - HPI Onset: This morning Onset/Duration: Sudden Quality of pain: Sharp, Stabbing Severity: Mild Associated symptoms: Chest pain, Hurts to breath, Shortness of breath Exacerbated by: Deep breathing Relieved by: Denies Similar symptoms previously: Yes Recently seen / treated by doctor: No - Related Data Allergies/Adverse Reactions: acetaminophen [From Vicodin] Allergy (Verified 03/15/18 19:02) VOMITING aspirin [Aspirin] Allergy (Verified 03/15/18 19:02) Renal failure hydrocodone [From Vicodin] Allergy (Verified 03/15/18 19:02) VOMITING ibuprofen Allergy (Verified 03/15/18 19:02) Past Medical History - General Information source: Patient, Emergency Med Personnel, [facility] Records - Social History Smoking Status: Never Smoker Frequency of alcohol use: None Drug Abuse: None Family History: Reviewed & Not Pertinent, CAD, Hyperlipidemia, Hypertension - Past Medical History Cardiac Medical History: Reports: Hx Congestive Heart Failure, Hx Hypertension - ON MEDICATION Denies: Hx Coronary Artery Disease, Hx Heart Attack - pacer/defib Pulmonary Medical History: Denies: Hx Asthma, Hx Bronchitis, Hx COPD, Hx Pneumonia Neurological Medical History: Reports: Hx Seizures - BEGINNING OF 2016. Denies: Hx Cerebrovascular Accident Renal/ Medical History: Reports: Hx Ovarian Cysts. Denies: Hx Peritoneal Dialysis Musculoskeletal Medical History: Reports Hx Arthritis - RA Past Surgical History: Reports: Hx Gynecologic Surgery - Colposcopy, Hx Oral Surgery - wisdom - Immunizations Immunizations up to date: Yes Hx Diphtheria, Pertussis, Tetanus Vaccination: Yes Review of Systems - Review of Systems Constitutional: No symptoms reported EENT: No symptoms reported Cardiovascular: Chest pain, Orthopnea Respiratory: Cough, Hurts to breathe, Short of breath Gastrointestinal: No symptoms reported Genitourinary: No symptoms reported Female Genitourinary: No symptoms reported Musculoskeletal: No symptoms reported Skin: No symptoms reported Hematologic/Lymphatic: No symptoms reported Neurological/Psychological: No symptoms reported -: Yes All other systems reviewed and negative Physical Exam - Vital signs Vitals: Resp BP Pulse Ox 23 H 148/121 H 97 05/25/18 07:01 05/25/18 07:01 05/25/18 07:01 - Notes Notes: PHYSICAL EXAMINATION: GENERAL: Well-appearing, well-nourished and in no acute distress. HEAD: Atraumatic, normocephalic. EYES: Pupils equal round and reactive to light, extraocular movements intact, conjunctiva are normal. ENT: Nares patent, oropharynx clear without exudates. Moist mucous membranes. NECK: Normal range of motion, supple without lymphadenopathy LUNGS: Breath sounds clear to auscultation bilaterally and equal. No wheezes rales or rhonchi. HEART: Regular rate and rhythm without murmurs ABDOMEN: Soft, nontender, nondistended abdomen. No guarding, no rebound. No masses appreciated. Female : deferred Musculoskeletal: Normal range of motion, no pitting or edema. No cyanosis. NEUROLOGICAL: Cranial nerves grossly intact. Normal speech, normal gait. Normal sensory, motor exams PSYCH: Normal mood, normal affect. SKIN: Warm, Dry, normal turgor, no rashes or lesions noted. Course - Re-evaluation Re-evalutation: 05/25/18 06:20 EKG: Ventricular rate 111, UT interval 160, QRS duration 90, QTc 484, sinus tachycardia. No ST segment elevation. T wave inversion in leads V5, V6. 05/25/18 13:38 Labs and imaging obtained. Patient's troponin came back elevated. No EKG changes to suggest ST segment elevation. D-dimer came back elevated. Patient has a history of renal failure and a CT was unable to be obtained. A VQ scan was done and no PE was appreciated. Patient's BNP was elevated. Chest x-ray shows mild pulmonary edema. Physical exam was unremarkable for lower extremity pitting edema or rhonchi lung sounds. Patient was given fentanyl, clonidine, Lasix while in the emergency department. Patient's pain and shortness of breath continued as well as her hypertension. I contacted [facility] for transfer as the patient was requesting to be transferred where her physicians are located. I spoke with Dr. Zelaya. She is agreeable with transfer. As the patient continues to be hypertensive, a nitro drip was started. Patient currently stable for transfer. - Vital Signs Vital signs: Temp Pulse Resp BP Pulse Ox 97.6 F 21 H 158/118 H 100 05/25/18 14:09 05/25/18 14:06 05/25/18 14:06 05/25/18 14:06 - Laboratory Result Diagrams: 05/25/18 05:45 05/25/18 05:45 Laboratory results interpreted by me: 05/25/18 05/25/18 05/25/18 05:45 05:45 05:45 Hgb 10.1 L Hct 32.1 L MCV 79 L MCH 24.8 L MCHC 31.5 L RDW 14.5 H D-Dimer Chloride 112 H BUN 29 H Creatinine 2.54 H Est GFR ( Amer) 27 L Est GFR (Non-Af Amer) 22 L NT-Pro-B Natriuret Pep 9500 H Albumin 3.4 L 05/25/18 05:45 Hgb Hct MCV MCH MCHC RDW D-Dimer 2.45 H Chloride BUN Creatinine Est GFR ( Amer) Est GFR (Non-Af Amer) NT-Pro-B Natriuret Pep Albumin Discharge - Discharge Clinical Impression: Congestive heart failure Qualifiers: Heart failure type: unspecified Heart failure chronicity: unspecified Qualified Code(s): I50.9 - Heart failure, unspecified Condition: Stable Disposition: [facility]
[2018-05-25 06:29] LABS: CREATINE KINASE MB 0.33 ng/mL (<4.55)
[2018-05-25 06:33] LABS: TROPONIN I 0.107 ng/mL
--- NOTE | 2018-05-25 06:33 | RADIOLOGY REPORT (SQ) ---
EXAM DESCRIPTION: XR CHEST 1 VIEW COMPLETED DATE/TME: 05/25/2018 05:38 CLINICAL HISTORY: 32 years Female, Short of breath COMPARISON: 11/21/2011 NUMBER OF VIEWS/TECHNIQUE: 1/AP FINDINGS: Adequate lung volume, mild central pulmonary edema, normal cardiac silhouette, and intact bony thorax. Left cardiac stimulator with leads. IMPRESSION: Mild central pulmonary edema pattern.
[2018-05-25] MEDS ORDERED: FENTANYL CITRATE INJ/PF 100 MCG/2 ML AMPUL IV ONE ×2 (07:08→12:39)
--- NOTE | 2018-05-25 11:26 | RADIOLOGY REPORT (SQ) ---
EXAM DESCRIPTION: NM LUNG VENT/PERF SCAN COMPLETED DATE/TIME: 05/25/2018 10:59 am REASON FOR STUDY: shortness of breath COMPARISON: Chest x-ray dated 05/25/2018. RADIONUCLIDE AND DOSE: 5.37 millicuries TC-99m MAA Intravenous 32.1 millicuries TC-99m DTPA Inhaled aerosol TECHNIQUE: Eight views of the lungs acquired post ventilation of DTPA aerosol. Eight matching views of the lungs acquired following injection of MAA. LIMITATIONS: None. FINDINGS: VENTILATION: Symmetric and homogeneous distribution of DTPA aerosol during ventilatory pha se. No significant areas of photopenia. PERFUSION: Perfusion images with normal homogenous activity and no wedge-shaped or segmental defects. No ventilation-perfusion mismatches. OTHER: No other significant finding. IMPRESSION: NORMAL VENTILATION-PERFUSION LUNG SCAN. NEGATIVE FOR PULMONARY EMBOLI. TECHNICAL DOCUMENTATION: JOB ID: [id number] [employer]- All Rights Reserved Reading location - IP/workstation name: [email or web address]
[2018-05-25] MEDS ORDERED: CLONIDINE HCL 0.1 MG TABLET PO ONE (12:41)
[2018-05-25] MEDS ORDERED: FUROSEMIDE INJ/PF 40 MG/4 ML SDV IV ONE (12:50)
[2018-05-25] MEDS ORDERED: NITROGLYCERIN/D5W 50 MG/250 ML RTUINJ IV PRN (13:29)
[2018-05-25 14:30] VITALS: BP 158/118
--- NOTE | 2018-05-25 23:45 | EKG REPORT ---
SEVERITY:- BORDERLINE ECG - SINUS TACHYCARDIA BORDERLINE PROLONGED QT INTERVAL : Confirmed by: Bill Lam 25-May-2018 23:44:33
== END 2018-05-25 14:30 | disposition short-term general hospital (02) ==
LOC: ER 05:32
DX: I11.0 Hypertensive heart disease with heart failure (principal); I50.1 Left ventricular failure, unspecified; R06.02 Shortness of breath; R06.01 Orthopnea; R07.1 Chest pain on breathing; R05 Cough; R00.0 Tachycardia, unspecified; R74.8 Abnormal levels of other serum enzymes; R79.1 Abnormal coagulation profile; Z88.5 Allergy status to narcotic agent; Z88.6 Allergy status to analgesic agent
CPT/HCPCS: 93005; 96376; 99285; 96375; 96365; 36415; 82553; 82550; 84703; 85025; 80053; 84484; 85379; 83880; 71045; 78582; 93010; A9540; A9567; J3490 ×2; J3010; J1940; Q9969

== ENCOUNTER 2018-08-26 08:59 | Emergency (ER) | payer MEDICAID ==
[2018-08-26 09:07] VITALS: BP 156/134
--- NOTE | 2018-08-26 09:37 | ER Document Report ---
ED Extremity Problem, Upper - General Chief Complaint: Numbness Stated Complaint: HAND/PALM NUMBNESS Time Seen by Provider: 08/26/18 09:28 Mode of Arrival: Ambulatory Information source: Patient TRAVEL OUTSIDE OF THE [place] IN LAST 30 DAYS: No - HPI Patient complains to provider of: Altered sensation, Hand Notes: Patient is here with complaints of numbness and tingling to the palm of her left hand. Patient has a history of congestive heart failure, renal failure, lupus as well as multiple other chronic comorbidities. She is on 20 mg of prednisone daily. She states that few days ago she started having some numbness and tingling to the ulnar side of her left palm as well as her left small finger. Small finger seems to be better, but she still has altered sensation to the ulnar side of her left palm. She denies any elbow or shoulder pain. She denies any weakness in the arm. She has no numbness, tingling, weakness to the face or the leg. She has no chest pain or shortness of breath. No fever. No nausea, vomiting, diarrhea. No rash. She denies any injury to this area. She denies any blurred or loss of vision. No other complaints at this time. - Related Data Allergies/Adverse Reactions: acetaminophen [From Vicodin] Allergy (Verified 03/15/18 19:02) VOMITING aspirin [Aspirin] Allergy (Verified 03/15/18 19:02) Renal failure hydrocodone [From Vicodin] Allergy (Verified 03/15/18 19:02) VOMITING ibuprofen Allergy (Verified 03/15/18 19:02) Past Medical History - Social History Smoking Status: Unknown if Ever Smoked Family History: Reviewed & Not Pertinent, CAD, Hyperlipidemia, Hypertension - Past Medical History Cardiac Medical History: Reports: Hx Congestive Heart Failure, Hx Hypertension - ON MEDICATION Denies: Hx Coronary Artery Disease, Hx Heart Attack - pacer/defib Pulmonary Medical History: Denies: Hx Asthma, Hx Bronchitis, Hx COPD, Hx Pneumonia Neurological Medical History: Reports: Hx Seizures - BEGINNING OF 2016. Denies: Hx Cerebrovascular Accident Renal/ Medical History: Reports: Hx Ovarian Cysts. Denies: Hx Peritoneal Marisa lysis Musculoskeletal Medical History: Reports Hx Arthritis - RA Past Surgical History: Reports: Hx Gynecologic Surgery - Colposcopy, Hx Oral Surgery - wisdom - Immunizations Immunizations up to date: Yes Hx Diphtheria, Pertussis, Tetanus Vaccination: Yes Review of Systems - Review of Systems -: Yes All other systems reviewed and negative Physical Exam - Vital signs Vitals: Temp Pulse Resp BP Pulse Ox 98.5 F 80 18 156/134 H 99 08/26/18 09:06 08/26/18 09:06 08/26/18 09:06 08/26/18 09:06 08/26/18 09:06 - Notes Notes: GENERAL: alert, cooperative, nontoxic, no distress. Patient noted to be playing on her phone with her right and left hand through my entire exam without any difficulty at all. HEAD: normocephalic, atraumatic EYES: conjunctiva pink without discharge, no external redness or swelling. Pupils are equal, round, reactive to light. EARS: no external swelling, no external redness NOSE: atraumatic, no external swelling MOUTH/THROAT: mucous membranes moist and pink, posterior pharynx without erythema, swelling, exudate. No trismus or drooling. NECK: soft, supple, full range of motion, no meningismus. CHEST: no distress, lungs clear and equal throughout. No wheezing, rales, rhonchi. CARDIAC: regular rate and rhythm, no murmur, normal capillary refill, normal pulses. No peripheral edema noted. BACK: full range of motion, no CVA tenderness. EXTREMITIES: full range of motion of all extremities. No redness, no swelling. Slight decreased sensation to the palmar aspect of the ulnar side of the left hand. Full range of motion of the fourth and fifth fingers. Normal cap refill and sensation distally. Normal pulse. There is no swelling. Compartments are soft. No tenderness to the elbow. No swelling. NEURO: alert and oriented x 3, cranial nerves II through XII are grossly intact. Upper and lower extremities are equal throughout. Normal sensation. No focal deficits, full range of motion of all extremities. normal finger to nose. PYSCH: appropriate mood, affect. Patient is cooperative. SKIN: pink, warm, dry, no rash. Course - Re-evaluation Re-evalutation: 08/26/18 10:02 Patient nontoxic-appearing stable vitals. Patient here with complaints of left hand numbness that started a few days ago. She was also having some numbness to the left fourth and fifth fingers, this has resolved. No injury. No chest pain or shortness of breath. No numbness, tingling, weakness of the face or the legs. Completely nonfocal neurological exam at this time. EKG is unremarkable and unchanged from before. No fevers. The remainder of her exam is unremarkable. Patient most likely having some sort of ulnar neuropathy. Patient is already on 20 mg of prednisone. I offered to give her a burst of prednisone for the next few days to decrease inflammation, she declined that she states she wants to try to lose weight. This point the patient will be placed in a Velcro cock-up splint, instructions to rest and ice her wrist. Follow-up with orthopedics at the next available appointment. Follow-up sooner, return for worsening pain, numbness, tingling, weakness to the arm, leg, face, chest pain or shortness of breath, fever, or any further concerns. The patient's emergency department workup and current diagnosis were explained to the patient and or family. Follow-up instructions were provided. Medications if prescribed were discussed. Instructions for when to return to the emergency department including specific worrisome symptoms were discussed with the patient and/or family. - Vital Signs Vital signs: Temp Pulse Resp BP Pulse Ox 98.5 F 80 18 156/134 H 99 08/26/18 09:06 08/26/18 09:06 08/26/18 09:06 08/26/18 09:06 08/26/18 09:06 - EKG Interpretation by Nj Rate: Normal When compared to previous EKG there are: Other - Sinus rhythm, prolonged QT interval, rate of 67, nonspecific T wave inversion which is unchanged from previous EKG, no ST wave depression or elevation, no STEMI. Procedures - Immobilization Left wrist Pre-Proc Neuro Vasc Exam: Normal Immobilizer type: Cock-up Performed by: JANKI Post-Proc Neuro Vasc Exam: Normal, Unchanged from pre-exam Alignment checked and good: Yes Discharge - Discharge Clinical Impression: Ulnar neuropathy Qualifiers: Laterality: left Qualified Code(s): G56.22 - Lesion of ulnar nerve, left upper limb Condition: Stable Disposition: HOME, SELF-CARE Instructions: Neuropathy ([facility]) Additional Instructions: Follow-up with Ortho at the next available appointment. Wear splint and ice and elevate your wrist. Follow-up sooner, return emergency department for chest pain, shortness of breath, numbness, tingling, weakness to the arms, legs, face. Or for any further concerns. Forms: Elevated Blood Pressure, Smoking Cessation Education Referrals: WILLIAMS GEIGER, [ACTIVE STAFF] - Follow up as needed
--- NOTE | 2018-08-26 12:13 | EKG REPORT ---
SEVERITY:- ABNORMAL ECG - SINUS RHYTHM PROBABLE LVH WITH SECONDARY REPOL ABNRM PROLONGED QT INTERVAL : Confirmed by: Dilshad Collins MD 26-Aug-2018 12:12:15
== END 2018-08-26 10:06 | disposition home or self-care (01) ==
LOC: ER 08:59
DX: G56.22 Lesion of ulnar nerve, left upper limb (principal); R20.0 Anesthesia of skin; Z79.899 Other long term (current) drug therapy; I50.9 Heart failure, unspecified; I11.0 Hypertensive heart disease with heart failure
CPT/HCPCS: 93005; 99284; 93010; L3908

== ENCOUNTER 2018-09-02 12:23 | Emergency (ER) | payer MEDICAID ==
[2018-09-02] MEDS ORDERED: NORMAL SALINE 1000 ML 1,000 ML IV ONE (12:57)
[2018-09-02] MEDS ORDERED: ONDANSETRON HCL INJ/PF 4 MG/2 ML SDV IV ONE (12:58)
[2018-09-02 13:10] LABS: ABSOLUTE BASOPHILS # (AUTO) 0.1 10^3/uL (0.0-0.2); ABSOLUTE EOSINOPHILS # (AUTO) 0.1 10^3/uL (0.0-0.6); ABSOLUTE MONOCYTES (AUTO) 0.2 10^3/uL (0.1-1.4); ABSOLUTE NEUT (AUTO) 3.8 10^3/uL (1.7-8.2); HEMATOCRIT 39.7 % (36.0-47.0); HEMOGLOBIN 12.6 g/dL (12.0-15.5); LYMPHOCYTES % (AUTO) 19.4 % (13-45); MEAN CORPUSCULAR HEMOGLOBIN 26.5 pg (27.0-33.4); MEAN CORPUSCULAR HGB CONC 31.7 g/dL (32.0-36.0); MEAN CORPUSCULAR VOLUME 84 fl (80-97); PLATELET COUNT 240 10^3/uL (150-450); RED BLOOD COUNT 4.75 10^6/uL (3.72-5.28); RED CELL DISTRIBUTION WIDTH 16.4 % (11.5-14.0); SEGMENTED NEUTROPHILS % (AUTO) 74.6 % (42-78); TOTAL CELLS COUNTED % (AUTO) 100 %; WHITE BLOOD COUNT 5.1 10^3/uL (4.0-10.5)
[2018-09-02 13:27] LABS: ALANINE AMINOTRANSFERASE 16 U/L (9-52); ALBUMIN 3.6 g/dL (3.5-5.0); ALKALINE PHOSPHATASE 84 U/L (38-126); ANION GAP 9 (5-19); ASPARTATE AMINO TRANSFERASE 16 U/L (14-36); BILIRUBIN,DIRECT 0.2 mg/dL (0.0-0.4); BILIRUBIN,TOTAL 0.4 mg/dL (0.2-1.3); BLOOD UREA NITROGEN 21 mg/dL (7-20); CALCIUM 9.2 mg/dL (8.4-10.2); CARBON DIOXIDE 23 mmol/L (22-30); CHLORIDE 111 mmol/L (98-107); GLUCOSE 108 mg/dL (75-110); POTASSIUM 4.8 mmol/L (3.6-5.0); SODIUM 142.8 mmol/L (137-145); TOTAL PROTEIN 6.9 g/dL (6.3-8.2)
[2018-09-02] MEDS ORDERED: METHYLPREDNISOLONE INJ 125 MG/2 ML SDV IV ONE (14:08)
[2018-09-02] MEDS ORDERED: LEVETIRACETAM 500 MG TABLET PO ONE (14:08)
[2018-09-02] MEDS ORDERED: MORPHINE SULFATE 10 MG/ML INJ IV ONE (14:09)
--- NOTE | 2018-09-02 14:21 | ER Document Report ---
Addendum entered and electronically signed by JAYESH GLYNN PA-C 09/02/18 16:37: Discharge - Discharge Clinical Impression: Generalized body aches Lupus (systemic lupus erythematosus) Qualifiers: Systemic lupus erythematosus type: unspecified Systemic lupus erythematosus organ involvement: unspecified Qualified Code(s): M32.9 - Systemic lupus erythematosus, unspecified Condition: Good Disposition: HOME, SELF-CARE Instructions: Kidney Failure ([facility]) Additional Instructions: As we discussed I talked to Dr. Bennett and he states to have him follow-up with him in his office. Continue taking your current diuretics as he is prescribed them only. We are placing you on a slight steroid taper for your lupus flareup. And if you pain medications into you can get that under control. I would hig sunny suggest contacting her primary care provider to follow-up with them sometime this week before the weekend gets here. Should you have any concerns or problems return to ER for recheck. Prescriptions: Oxycodone HCl/Acetaminophen [Percocet 5-325 mg Tablet] 1 tab PO Q4H PRN #12 tablet PRN Reason: Prednisone 5 mg PO ASDIR PRN 6 Days #1 tab.ds.pk PRN Reason: Forms: Elevated Blood Pressure Original Note: ED General - General Chief Complaint: Pain Stated Complaint: PAIN Time Seen by Provider: 09/02/18 14:05 Mode of Arrival: Wheelchair Information source: Patient, Relative Notes: Patient is a 32-year-old female who states she has a history of lupus and has flareups quite often. Patient states that she was feeling okay yesterday when she went to bed last night she was woken up out of sleep with excruciating pain all over. Patient states that she is unable to handle any medications orally because she vomits back up. She attempted to take Tylenol, a antinausea medication and she vomited both those back-up as well as her Keppra. While she was in the emergency room patient states she started feeling warm and hot and weak and it was reported that she passed out in the waiting room there are 2 different accounts one said that she had a seizure which family informs me that when she has flareups she does often have a seizure activity. And the other was that she just had a syncopal episode. Patient has a history of congestive heart failure no diabetes and does have a pacer defibrillator in place. She denies any recent shortness of breath or chest pain. Patient states her primary care provider is in [facility] and she often goes to [facility]. She is requesting the possibility of transfer there if we find anything wrong with her. TRAVEL OUTSIDE OF THE [place] IN LAST 30 DAYS: No - HPI Onset: This morning Onset/Duration: Gradual, Worse Quality of pain: Achy, Sharp Severity: Severe Pain Level: 5 Context: History of lupus with lupus flare per patient. Associated symptoms: None Exacerbated by: Supine, Sitting, Standing, Movement, Walking, Other - Unable to find a position of comfort Relieved by: Denies Similar symptoms previously: Yes Recently seen / treated by doctor: Yes - Related Data Allergies/Adverse Reactions: acetaminophen [From Vicodin] Allergy (Verified 03/15/18 19:02) VOMITING aspirin [Aspirin] Allergy (Verified 03/15/18 19:02) Renal failure hydrocodone [From Vicodin] Allergy (Verified 03/15/18 19:02) VOMITING ibuprofen Allergy (Verified 03/15/18 19:02) Past Medical History - General Information source: Patient - Social History Smoking Status: Never Smoker Chew tobacco use (# tins/day): No Frequency of alcohol use: None Drug Abuse: None Family History: Reviewed & Not Pertinent, CAD, Hyperlipidemia, Hypertension Patient has suicidal ideation: No Patient has homicidal ideation: No - Past Medical History Cardiac Medical History: Reports: Hx Congestive Heart Failure, Hx Hypertension - ON MEDICATION Denies: Hx Coronary Artery Disease Comment Only: Hx Heart Attack - pacer/defib Pulmonary Medical History: Denies: Hx Asthma, Hx Bronchitis, Hx COPD, Hx Pneumonia Neurological Medical History: Reports: Hx Seizures - BEGINNING OF 2016. Denies: Hx Cerebrovascular Accident Renal/ Medical History: Reports: Hx Ovarian Cysts. Denies: Hx Peritoneal Dialysis Musculoskeletal Medical History: Reports Hx Arthritis - RA Past Surgical History: Reports: Hx Cardiac Surgery - pacer/defib, Hx Gynecologic Surgery - Colposcopy, Hx Oral Surgery - wisdom - Immunizations Immunizations up to date: Yes Hx Diphtheria, Pertussis, Tetanus Vaccination: Yes Review of Systems - Review of Systems Constitutional: No symptoms reported EENT: No symptoms reported Cardiovascular: No symptoms reported Respiratory: No symptoms reported Gastrointestinal: No symptoms reported Genitourinary: No symptoms reported Female Genitourinary: No symptoms reported Musculoskeletal: See HPI, Joint pain, Muscle pain Skin: No symptoms reported Hematologic/Lymphatic: No symptoms reported Neurological/Psychological: No symptoms reported, Weakness -: Yes All other systems reviewed and negative Physical Exam - Vital signs Vitals: Temp Pulse Resp BP Pulse Ox 98.1 F 76 18 157/115 H 97 09/02/18 12:29 09/02/18 12:29 09/02/18 12:29 09/02/18 12:29 09/02/18 12:29 Interpretation: Hypertensive - Notes Notes: PHYSICAL EXAMINATION: GENERAL patient is a well-nourished well-developed 32-year-old female who is in no apparent distress on physical exam today but is highly anxious and demanding. HEAD: Atraumatic, normocephalic. EYES: Pupils equal round and reactive to light, extraocular movements intact, conjunctiva are normal. ENT: Nares patent, oropharynx clear without exudates. Moist mucous membranes. NECK: Normal range of motion, supple without lymphadenopathy LUNGS: Breath sounds clear to auscultation bilaterally and equal. No wheezes rales or rhonchi. HEART: Regular rate and rhythm without murmurs ABDOMEN: Soft, nontender, nondistended abdomen. No guarding, no rebound. No masses appreciated. Female : deferred Musculoskeletal: Normal range of motion, no pitting or edema. No cyanosis.Physical exam patient's extremities show that she has good upper extremity strength against resistance good cloth handler strength bilaterally she has a good vascular exam on the upper extremities as well. Good cap refill in the nailbeds of the fingers of both hands. Good opposition noted on both sides of the hands. Lower extremities show negative straight leg raises bilaterally. DTRs are normal. Vascular exam of the lower extremities also appear to be normal. There is no overt edema noted. Dorsalis pedal pulses are 2+. NEUROLOGICAL: Normal speech, normal gait. Normal sensory, motor exams. NIH score 0 PSYCH: Normal mood, normal affect. SKIN: Warm, Dry, normal turgor, no rashes or lesions noted. Course - Re-evaluation Re-evalutation: 09/02/18 16:[address] Juan Diego Bennett stave jointer for the patient in [place]. His number is [phone]. He was nice enough to contact me back and I explained to him patient's findings on her renal functions. Her creatinine is 2.75 and he is states that that was that way the last time he saw her. He also knows that her BUN is not running very high at 21. I explained to him about her BNP and he tells me that this is "just her". He informs me that the 12,200 on the BMP should not be addressed at this current time. She is on heavy doses of oral diuretics and he wants to maintain that on an outpatient basis. So at this point he is okay to treat her for her lupus flareup and have her follow-up with him outpatient. 09/02/18 16:33 I have looked patient up on the [facility]placed by [facility] aware line she does not appear me to have a drug-seeking behavior. She has not gotten any large quantities of medications on a regular basis and when she has gotten only been for a 2 to 3-day flareup. In 2019 she is only received 2 prescriptions in both of those were from the same provider. At this time after doing extensive research and talking to her stave jointer I feel patient is experiencing a 100% lupus flareup and we will cover her for the next 48 hours. - Vital Signs Vital signs: Temp Pulse Resp BP Pulse Ox 98.1 F 76 16 157/121 H 99 09/02/18 12:29 09/02/18 12:29 09/02/18 13:17 09/02/18 13:01 09/02/18 13:01 - Laboratory Result Diagrams: 09/02/18 12:54 09/02/18 12:54 Laboratory results interpreted by me: 09/02/18 09/02/18 09/02/18 12:54 12:54 12:54 MCH 26.5 L MCHC 31.7 L RDW 16.4 H Chloride 111 H BUN 21 H Creatinine 2.73 H Est GFR ( Amer) 25 L Est GFR (Non-Af Amer) 20 L NT-Pro-B Natriuret Pep 74733 H Discharge - Discharge Clinical Impression: Generalized body aches Lupus (systemic lupus erythematosus) Qualifiers: Systemic lupus erythematosus type: unspecified Systemic lupus erythematosus organ involvement: unspecified Qualified Code(s): M32.9 - Systemic lupus erythematosus, unspecified Condition: Good Disposition: HOME, SELF-CARE Instructions: Kidney Failure ([facility]) Additional Instructions: As we discussed I talked to Dr. Bennett and he states to have him follow-up with him in his office. Continue taking your current diuretics as he is prescribed them only. We are placing you on a slight steroid taper for your lupus flareup. And if you pain medications into you can get that under control. I would highly suggest contacting her primary care provider to follow-up with them sometime this week before the weekend gets here. Should you have any concerns or problems return to ER for recheck. Prescriptions: Oxycodone HCl/Acetaminophen [Percocet 5-325 mg Tablet] 1 tab PO Q4H PRN #12 tablet PRN Reason: Prednisone 5 mg PO ASDIR PRN 6 Days #1 tab.ds.pk PRN Reason: Forms: Elevated Blood Pressure
--- NOTE | 2018-09-02 14:47 | RADIOLOGY REPORT (SQ) ---
EXAM DESCRIPTION: CHEST SINGLE VIEW COMPLETED DATE/TIME: 09/02/2018 2:36 pm REASON FOR STUDY: pain COMPARISON: 05/25/2018 EXAM PARAMETERS: NUMBER OF VIEWS: One view. TECHNIQUE: Single frontal radiographic view of the chest acquired. RADIATION DOSE: NA LIMITATIONS: None. FINDINGS: LUNGS AND PLEURA: No opacities, masses or pneumothorax. No pleural effusion. MEDIASTINUM AND HILAR STRUCTURES: No masses. Contour normal. HEART AND VASCULAR STRUCTURES: Stable heart size. Normal vasculature. BONES: No acute findings. HARDWARE: Unchanged position of defibrillator. OTHER: No other significant finding. IMPRESSION: NO ACUTE RADIOGRAPHIC FINDING IN THE CHEST. TECHNICAL DOCUMENTATION: JOB ID: [id number] [employer]- All Rights Reserved Reading location - IP/workstation name: [email or web address]
[2018-09-02] MEDS ORDERED: HYDROMORPHONE HCL INJ/PF 2 MG/ML AMPULE IV ONE (15:35)
[2018-09-02 17:37] VITALS: BP 156/107
== END 2018-09-02 17:43 | disposition home or self-care (01) ==
LOC: ER 12:23
DX: M32.9 Systemic lupus erythematosus, unspecified (principal); R11.10 Vomiting, unspecified; I11.0 Hypertensive heart disease with heart failure; I50.9 Heart failure, unspecified; Z79.899 Other long term (current) drug therapy; I25.2 Old myocardial infarction; Z95.810 Presence of automatic (implantable) cardiac defibrillator; Z88.5 Allergy status to narcotic agent; Z88.6 Allergy status to analgesic agent
CPT/HCPCS: 99283; 36415; 85025; 80053; 83880; 71045; J2930; J2270; J1170; J3490; J2405; J7030